=== PATIENT | female | born 1950 | race Caucasian/White ===

== ENCOUNTER 2022-03-21 08:35 | Inpatient (IN) | payer MEDICARE, MEDICAID, SELFPAY ==
[2022-03-21] VITALS (23 sets, daily range): BP systolic 125–166; BP diastolic 88–106; PULSE 88–122; RESP 17–20; TEMP 36.2–36.6; O2SAT 84–97; BMI 34.5; BMI 28.3; BMI 29.9
--- NOTE | 2022-03-21 07:24 | IR_ITS ---
APPROVED REPORT Patient Location: [facility] [employer] P[employer]her: ALBA Narayan RT (R) PROCEDURES Left heart catheterization Left ventriculogram Selective coronary angiogram Percutaneous mechanical thrombectomy to the proximal LAD Percutaneous mechanical thrombectomy to the first diagonal artery Drug-eluting stent deployment to the proximal LAD INDICATION Acute anterior ST elevation myocardial infarction, Coronary artery disease Informed consent was obtained prior to the procedure. COMPLICATIONS None Estimated Blood Loss: Less than 10 ML TECHNIQUE One percent lidocaine used to anesthetize the right anterior aspect of the wrist. The right radial artery was accessed via the Seldinger technique. A 6 Uzbek sheath was placed in the right radial artery. 2.5 mg of verapamil, 800 mcg of nitroglycerin, 1mg Lidocaine and 5000 U Heparin were given through the arterial sheath. The papa catheter was also used to perform selective coronary angiography. Therapeutic heparin was administered with a therapeutic ACT. The guide catheter was placed in the proximal left main artery and a Choice PT extra-support wire was used to traverse the thrombosed proximal LAD. The initial wire passed into a large first diagonal artery. The penumbra was advanced and mechanical aspiration was performed. This quickly called the penumbra therefore it was removed and back flushed which produced a large thrombus. The catheter was advanced and this was repeated. An additional large thrombus was removed from the diagonal artery. This restored CHAVO-3 flow with repeat angiography demonstrating the mid LAD was now occluded. The penumbra was placed back into the mid LAD and the penumbra was quickly occluded with passage into the mid LAD. The penumbra was removed and backflush which also produced a large thrombus. This restored CHAVO-3 flow throughout the LAD system. A 3.5 x 12 mm resolute Edwin stent was deployed in the proximal LAD reducing the napkin ring stenosis to 0%. CHAVO 0 flow was present at the beginning of the procedure with CHAVO-3 flow being present down both the large diagonal artery and the LAD at the end of the procedure. The guide catheter was then removed and used to perform right coronary angiography as well as left heart catheterization and left ventriculogram. At the end the procedure the sheath was removed good hemostasis was achieved using TR banding patient was transferred to the postop holding area in stable condition. Integrilin was started due to the large thrombus burden throughout the LAD and diagonal artery system. It also appeared there may be some distal thrombus in the LAD therefore the Integrilin was started ANGIOGRAPHIC RESULTS The left main artery Normal The left anterior descending artery Initially proximally thrombosed. Following percutaneous revascularization the LAD is widely patent and then bifurcates into a dual LAD system. The LAD itself is smaller than a large diagonal artery. The LAD proper is patent but a small caliber vessel which supplies the apex. The larger first diagonal artery has proximal 10 to 20% stenosis with accompanying CHAVO-3 flow The circumflex artery Nondominant with mild 10% luminal irregularities The right coronary artery Large dominant with proximal 30% stenosis mid vessel 30% stenosis and distal diffuse 30% stenoses The HILLIARD ventriculogram reveals Large anterior apical akinesis with estimate ejection fraction 15% The left ventricular end-diastolic pressure 40 mmHg IMPRESSION Acute proximal LAD occlusion/thrombosis Successful mechanical thrombectomy to both the LAD proper and a large bifurcating first diagonal artery which functions as a dual LAD supply Successfu
[2022-03-21 08:37] LABS: CATHL Activated Clotting Time > 400 SEC (74-125)
[2022-03-21 08:37] LABS: CATHL Activated Clotting Time 236 SEC (74-125)
[2022-03-21 09:17] LABS: Coronavirus 19, PCR Not Detected (NotDetected); Influenza A, PCR Not Detected (NotDetected); Influenza B, PCR Not Detected (NotDetected)
--- NOTE | 2022-03-21 09:47 | CA_ITS ---
APPROVED REPORT EXAM: Comprehensive 2D, Doppler, and color-flow Echocardiogram [employer] Development Engineer: Ngozi Burroughs CRT Ht: 5 ft 4 in Wt: 164lbs BSA: 1.80 BP: 130/97 mmHg Indications: Chest Pressure, STEMI, Hypertension/HDD, STENTED TODAY, EF TODAY 15% ON CATH. 2D Dimensions IVSd 1.80 cm F: 0.6-1.0 LVEF (Visual) 20.00 % PWd 0.80 cm F: 0.6 - 1.0 LVDd 5.10 cm F: 3.9 - 5.3 LVDs 3.60 cm F: 2.2 - 3.5 Aortic Root 3.60 cm F: 2.7 - 3.3 Left Atrium 3.20 cm F: 2.7 - 3.8 RVID Base (AP4) 2.90 cm (M/F) 2.5-4.1 LVOT 2.00 cm (M/F) 1.5-2.5 M-Mode Dimensions LA Diam 3.20 cm (1.9-4.0) Left Ventricle Left atrium is mildly enlarged, left ventricle is mildly dilated, there is severe reduced left ventricular systolic function, estimated ejection fraction approximately 20%, there is mild hypokinesis involving mid to distal septum, anterior, anterior apical and apical wall. Diastolic parameters are inconclusive. Right Ventricle Right atrium and right ventricle are normal size and contractility. Aortic Valve Aortic valve is minimally thickened and fibrosed there is no aortic stenosis, there is mild aortic insufficiency. Mitral Valve Mitral valve is grossly normal, there is mild mitral regurgitation. Tricuspid Valve Tricuspid valve is grossly normal, there is mild tricuspid regurgitation, tricuspid regurgitation jet velocity is inadequate for calculation of the right ventricular systolic pressure. Pulmonic Valve Pulmonic valve is poorly visualized. Great Vessels Aortic root is normal size. Inferior vena cava is poorly visualized. Pericardium No significant pericardial effusion noted. Conclusion 1. Mildly enlarged left atrium, dilated left ventricle, severely reduced left ventricular systolic function, estimated ejection fraction 20% with multiple segmental wall motion abnormality described above, diastolic parameters are inconclusive. 2. Mild aortic, mitral and tricuspid regurgitation. 3. No significant pericardial effusion noted. 4. Inferior vena cava is poorly visualized. Electronically signed by : Nadir Cummings MD 03/22/2022 10:48:01
--- NOTE | 2022-03-21 09:49 | EXP.CARD.CON ---
History of Present Illness History of Present Illness Consult date: 03/21/22 Requesting physician: John Cast Consult reason: chest pain Chief complaint: chest pain History of present illness: This is a 71-year-old white female who presented to the emergency department at [facility] with chest pain and pain under her armpits. The patient was found to have an anterior STEMI and was transferred here to [facility]. The patient reports that she woke up this morning feeling really anxious and then she had sudden onset of chest pain that she describes as a pressure sensation in the substernal aspect of her chest. It was radiating under her bilateral armpits and down her arms causing numbness. She states that this was an 8 out of 10 in intensity. She denies any associated shortness of breath. It was associated with diaphoresis and nausea. She states that the symptoms persisted so she went to the hospital at [facility]. That is where she was found to have an anterior STEMI and she was transferred here to [facility]. The patient was taken directly to the cardiac catheterization laboratory and underwent thrombectomy of the LAD and first diagonal artery as well as stenting of the LAD. The patient remains on an Integrilin drip at this time. She will be on dual antiplatelet therapy with Brilinta and aspirin. Currently she denies any chest pain or pressure following the procedure. She is still complaining of some nausea. She denies any fever, chills, vomiting, diarrhea, PND or orthopnea. The patient reports that her mother of old age at the age of 95 and her father after a fall where he she thinks he he hit his head. She denies a family history of ischemic heart disease. [facility] Disclaimer: The information contained in this section may have been updated after the patient was seen, as this information can be updated by other users. Medical History Abnormal electrocardiogram [ECG] [EKG] Acute systolic (congestive) heart failure Coronary artery disease Elevated left ventricular end-diastolic pressure (LVEDP) Hypertension Ischemic cardiomyopathy LV dysfunction Occasional use of marijuana ST elevation myocardial infarction (STEMI) of anterior wall Tobacco user Uses alcohol occasionally Surgical History Stented coronary artery Family History Other Hypertension Social History Smoking Status: Current every day smoker tobacco type: cigarettes packs per day: 1 quit status: considering quitting second hand exposure: Yes Tobacco counseling given: provider counseling alcohol intake: current counseling provided: provider counseling substance use type: marijuana counseling given: Yes counseling provided: provider counseling current occupational status: other Travel in the last 8 weeks: None Review of Systems Review of Systems Review of systems:: pertinent systems reviewed and negative unless documented below Constitutional Constitutional: Reports system reviewed and no additional complaints, except as documented Eyes Eyes: Reports system reviewed and no additional complaints, except as documented ENT Ears, Nose, Mouth, and Throat: Reports system reviewed and no additional complaints, except as documented *Cardiovascular Cardiovascular: Reports system reviewed and no additional complaints, except as documented, Reports chest pain, Reports chest pain at rest, Reports chest pain with activity, Reports diaphoresis and Reports radiating jaw, neck or arm pain *Respiratory Respiratory: Reports system reviewed and no additional complaints, except as documented *Gastrointestinal Gastrointestinal: Reports system reviewed and no additional complaints, except as documented and Reports nausea *Genitourinary Genitourinary:
--- NOTE | 2022-03-21 11:51 | EXP.HP ---
History of Present Illness *Admission Date: 03/21/22 *Reason for visit:: Chest pain, STEMI *History of present illness: Ms. Grey is a 71-year-old female with history of obesity, hypertension, tobacco use who presented with an hour and a half of chest pain onset prior to presenting to the ER. Initially presented to [facility] where she was found to have ST elevations on EKG consistent with anterior STEMI and transferred to [facility] for further management. Taken directly to the [facility] [employer] [facility]. She reported that she woke up this morning feeling anxious with sudden onset of chest pain described as pressure sensation in the middle of her chest. Radiating to bilateral armpits and down her arms with numbness. Pain was rated as 8 out of 10. Denied any shortness of breath, cough. Did complain of diaphoresis and nausea. Symptoms persisted. Taken directly to the [facility] [employer] [facility] and underwent thrombectomy of the LAD and first diagonal artery. Received stenting of her LAD. Was started on Integrilin drip initially. Started on dual antiplatelet therapy. Medicine consulted for admission. After arriving to the floor, Integrilin drip has been stopped. States she is feeling better but still having some intermittent chest discomfort. Denies any fever, vomiting, diarrhea, orthopnea. Does smoke at least 1/2 pack daily. [facility] Disclaimer: The information contained in this section may have been updated after the patient was seen, as this information can be updated by other users. Medical History Abnormal electrocardiogram [ECG] [EKG] Acute systolic (congestive) heart failure Coronary artery disease Elevated left ventricular end-diastolic pressure (LVEDP) Hypertension Ischemic cardiomyopathy LV dysfunction Occasional use of marijuana ST elevation myocardial infarction (STEMI) of anterior wall Tobacco user Uses alcohol occasionally Surgical History H/O tubal ligation Stented coronary artery Family History Hypertension Social History Smoking Status: Current every day smoker tobacco type: cigarettes packs per day: 1 quit status: considering quitting second hand exposure: Yes Tobacco counseling given: provider counseling alcohol intake: current counseling provided: provider counseling substance use type: marijuana counseling given: Yes counseling provided: provider counseling current occupational status: other Travel in the last 8 weeks: None Review of Systems Review of Systems Review of systems (narrative): 14 point review of systems performed, pertinent positives and negatives as per HPI *Neurologic Neurologic: Reports system reviewed and no additional complaints, except as documented Meds Home Medications and Allergies Home Medications Medication Instructions Recorded Confirmed Type albuterol sulfate 90 mcg/actuation 2 puff inhalation Q4HP PRN 03/21/22 03/21/22 History aerosol inhaler Shortness Of Breath citalopram 20 mg tablet 20 mg PO DAILY Depression 03/21/22 03/21/22 History fluticasone 250 mcg-salmeterol 50 1 ea inhalation BID COPD 03/21/22 03/21/22 History mcg/dose blistr powdr for inhalation hydroxyzine HCl 25 mg tablet 25 mg PO TIDP PRN Anxiety 03/21/22 03/21/22 History lisinopril 5 mg tablet 5 mg PO DAILY blood pressure 03/21/22 03/21/22 History loratadine 10 mg tablet 10 mg PO DAILY Allergy symptoms 03/21/22 03/21/22 History metoprolol tartrate 25 mg tablet 25 mg PO BID blood pressure 03/21/22 03/21/22 History New Prescriptions to Start Prescriptions: Allergies Allergy/AdvReac Type Severity Reaction Status Date / Time mycin AdvReac Unknown Uncoded 03/21/22 19:59 allergy reaction Exam Data for Last 24 hours Vital signs and Labs for Last 24 Hours: Pulse Resp BP Pulse Ox 99 H 18
--- NOTE | 2022-03-21 12:23 | PC.NURSE ---
verified with lift slab operator patient will not get her dose of brilinta tonight because she was loaded with the 180mg already
--- NOTE | 2022-03-21 12:31 | PC.NURSE ---
arrived to floor by stretcher from director of labor relations
--- NOTE | 2022-03-21 12:45 | SUR.PHASEI ---
1200 PHYSICIAN NOTIFIED OF PATIENT BRUISING ON CATH SITE, RIGHT RADIAL. NEW ORDERS TO STOP INTEGRILIN, MED STOPPED AT 1200. PRESSURE HELD ON RADIAL SITE FOR 10 MINUTES , TR BAND REMOVED . NO BLEEDING OR HEMATOMA NOTED. RIGHT WRIST IS BRUISED. RIGHT WRIST DRESSED WITH 4X4 AND TEGADERM
--- NOTE | 2022-03-21 14:20 | HMH.PHAINT1 ---
Pharmacy Intervention Comments: home medication list verified using list from outpatient pharmacy
--- NOTE | 2022-03-21 14:22 | ECG_ITS ---
APPROVED REPORT Exam: Resting ECG HR:94 bpm ECG Measurements Heart Rate 94 AXES ID 144 P 80 QRSd 78 QRS 127 QT 336 T 89 QTc 387 Conclusion SINUS RHYTHM RIGHT VENTRICULAR HYPERTROPHY [SOME/ALL OF: PROMINENT R IN V1, LATE TRANSITION, RAD, KIERAN, SSS] POSSIBLE ANTERIOR MYOCARDIAL INFARCTION , PROBABLY OLD [30 ms Q WAVE IN V3/V4, OR R < 0.2 mV IN V4] ABNORMAL ECG UNCONFIRMED REPORT Electronically signed by : Panfilo Baker MD 03/22/2022 08:50:37
--- NOTE | 2022-03-21 14:24 | PC.NURSE ---
Addendum entered by Kayley Puri RN 03/21/22 14:59: 1406 morphine 1mg admin, verified with rian Esquivel. 1420 pt noted to be moaning and sighing. when asked about pt pain level states she wants to give morphine time to work. 1450 again noted to be sighing and moaning. when asked if she is ok or if she is hurting again, she states that she is fine Original Note: 1400 called and spoke with A Black, notified that pt was still having chest pain, 5/10 similar in nature to pain this am. new orders, morphine 1 mg iv q1h. 1405 stat ekg
--- NOTE | 2022-03-21 20:25 | PC.NURSE ---
pt has had an ok afternoon since arrival to unit. she is alert and oriented and lungs are clear. following dose of promethazine pt became slightly confused and thought she was at home pt has bedsafety in place at this time. home medications addressed with pt, she is unsure of last time she definitely took her meds, she believes 03/20 at 1130. pt is able to ambulate with standby assist with staff. notified oncoming KERRI burgos that pt home meds still need to be reordered, she is tachycardic at this time, possibly related to not having beta yakelin
--- NOTE | 2022-03-21 20:29 | PC.NURSE ---
late entry: spoke with dr berger at approx 1420, pt requesting nicotine patch. order for nicotine 21mg td qd received patch admin at this time, verified with rian hart
--- NOTE | 2022-03-21 20:41 | PC.NURSE ---
late entry: addressed with Dr Cast at 1400 that pt face appears to be more swollen. rounded on pt again and states he does not feel that his face is any more swollen than this am. states that r/t kb betancourt being removed, face appears different
--- NOTE | 2022-03-21 22:21 | ECG_ITS ---
APPROVED REPORT Exam: Resting ECG HR:108 bpm ECG Measurements Heart Rate 108 AXES [place] 132 P 63 QRSd 78 QRS 146 QT 335 T 96 QTc 398 Conclusion SINUS TACHYCARDIA PATTERN CONSISTENT WITH PULMONARY DISEASE POSSIBLE RIGHT VENTRICULAR HYPERTROPHY [SOME/ALL OF: PROMINENT R IN V1, LATE TRANSITION, RAD, KIERAN, SSS] NONSPECIFIC ST ELEVATION [0.05+ mV ST ELEVATION] ABNORMAL ECG UNCONFIRMED REPORT Electronically signed by : Panfilo Baker MD 03/22/2022 08:48:19
[2022-03-21 23:13] LABS: Chloride 107 mmol/L (98-107)
[2022-03-21 23:14] LABS: Sodium 139 mmol/L (136-145)
[2022-03-21 23:16] LABS: Blood Urea Nitrogen 12 mg/dl (7-17); Creatinine Clearance Estimated 64 mL/min (50-200); Estimated Glomerular Filt Rate 99 ml/min (>60); GFR (African American) 119 ML/MIN (>60); Magnesium 1.9 mg/dl (1.6-2.3)
[2022-03-21 23:17] LABS: Calcium 8.7 mg/dl (8.4-10.2); Carbon Dioxide 23 mmol/L (22.0-30.0); Glucose 169 mg/dl (74-100)
[2022-03-22] VITALS (7 sets, daily range): BP systolic 94–106; BP diastolic 48–77; PULSE 90–120; RESP 17–23; TEMP 36.4–36.7; O2SAT 93–97; BMI 29.9
--- NOTE | 2022-03-22 06:41 | PC.NURSE ---
Pt continues to have CP but states it has improved. Nausea has improved. She is still soa. O2 2L NC placed on pt due to desats in upper 80s. MD Roman was informed and rounded on pt. EKG on chart. VSS at this time. Call light within reach. Safety measures in place.
[2022-03-22 06:44] LABS: Basophils # 0.1 K/mm3 (0-0.2); Basophils % 0.5 % (0.1-2.0); Eosinophils % 0.1 % (0.1-12.0); Hematocrit 48.6 % (37.0-47.0); Hemoglobin 15.5 g/dL (12.2-16.2); Lymphocytes % 6.1 % (10-50); Mean Corpuscular Hemoglobin 31.8 pg (27.0-31.2); Mean Corpuscular Volume 99.6 fl (81-99); Mean Platelet Volume 8.3 fl (7.4-10.4); Monocytes # 1.2 K/mm3 (0.1-1.0); Monocytes % 7.3 % (1.7-9.3); Neutrophils # 13.8 K/mm3 (1.8-7.8); Platelet Count 317 K/mm3 (142-424); Red Blood Count 4.88 M/mm3 (4.20-5.40)
[2022-03-22 06:46] LABS: MANUAL DIFFERENTIAL MANUAL DIFFERENTIAL (MANUAL DIFF)
[2022-03-22 07:20] LABS: Hemoglobin A1C 4.9 % (4.0-6.0)
[2022-03-22 07:35] LABS: Alanine Aminotransferase 95 U/L (12-78); Albumin Level 3.7 g/dl (3.5-5.0); Alkaline Phosphatase 61 U/L (38-126); Aspartate Amino Transferase 424 U/L (14-36); Bilirubin,Direct 0.5 mg/dl (0.0-0.4); Bilirubin,Indirect 1.2 mg/dL (0.0-0.9); Bilirubin,Total 1.7 mg/dl (0.2-1.3); Bilirubin,Unconjugated 1.2 mg/dL (0.0-1.1); Chol/HDL Ratio 2.9 (1-3.5); Cholesterol 226 mg/dl (140-200); HDL Cholesterol 77 mg/dl (40-60); Total Protein,Serum 6.3 g/dl (6.3-8.2); Triglycerides 87 mg/dl (30-150); VLDL Cholesterol 17 mg/dL (0-40)
[2022-03-22 07:46] LABS: Direct LDL Cholesterol 111.37 mg/dL (100-129)
[2022-03-22 08:14] LABS: Chloride 106 mmol/L (98-107); Sodium 139 mmol/L (136-145)
[2022-03-22 08:17] LABS: Blood Urea Nitrogen 15 mg/dl (7-17); Creatinine Clearance Estimated 64 mL/min (50-200); Estimated Glomerular Filt Rate 99 ml/min (>60); GFR (African American) 119 ML/MIN (>60)
[2022-03-22 08:18] LABS: Anion Gap 13.9 mEq/L (5-15); Calcium 8.8 mg/dl (8.4-10.2); Carbon Dioxide 24 mmol/L (22.0-30.0); Glucose 135 mg/dl (74-100)
--- NOTE | 2022-03-22 08:19 | EXP.ACUTE.PN ---
Subjective *Date: 03/22/22 *Time: 20:01 Interval history: Continues to have intermittent chest pain. Treating with opiates. Likely due to spasm. Denies any vomiting. No shortness of breath. Pleasant on interview. Alert and oriented. Reviewed telemetry, no acute events overnight. Medical Exam Vital signs and Labs for Last 24 Hours: Vital Signs Temp Pulse Pulse Resp BP Pulse Ox 03/22/22 04:00 100 H 21 98/71 L 93 L 03/22/22 04:00 90 03/22/22 00:00 120 H 03/21/22 20:00 110 H 03/22/22 00:00 97.7 F 03/22/22 00:00 107 H 17 95/77 L 93 L 03/21/22 22:00 122 H 17 133/90 92 L 03/21/22 20:00 111 H 20 133/95 H 90 L 03/21/22 20:00 97.1 F L 03/21/22 17:30 98 H 20 138/106 H 94 L 03/21/22 16:00 97.8 F 03/21/22 16:00 110 H 03/21/22 14:30 91 H 20 126/91 H 91 L 03/21/22 13:30 96 H 20 166/96 H 95 03/21/22 12:30 105 H 20 129/99 H 84 L 03/21/22 12:30 105 H 84 L 03/21/22 12:38 100 H 03/21/22 12:20 97 H 20 131/90 92 L 03/21/22 11:54 18 03/21/22 11:49 18 03/21/22 11:20 99 H 20 130/96 H 92 L 03/21/22 10:50 95 H 20 133/100 H 92 L 03/21/22 10:20 90 20 131/93 H 92 L 03/21/22 08:35 93 H 20 137/100 H 95 03/21/22 08:50 88 20 130/95 H 95 03/21/22 09:05 90 20 131/89 90 L 03/21/22 09:20 90 20 140/95 H 91 L 03/21/22 09:40 92 H 20 132/96 H 90 L 03/21/22 08:20 93 H 20 130/97 H 95 Intake and Output 12/03/22/22 03/22/22 23:59 07:59 15:59 Intake Total 60 / 120 60 / 60 Output Total 301 / 301 Balance -241 / -181 60 / 60 Intake: Intake, Oral Amount 60 / 120 60 / 60 Output: Output, Urine Amount 301 / 301 Other: Number of Unmeasured Voids 1 Laboratory Results - last 24 hr 03/21/22 08:26: Activated Clotting Time 236 H* 03/21/22 08:41: Activated Clotting Time > 400 H* D 03/21/22 08:45: SARS-CoV-2 (PCR) Not detected, Influenza A Untype (PCR) Not detected, Influenza Type B (PCR) Not detected 03/21/22 22:50: Sodium 139, Potassium 4.0, Chloride 107, Carbon Dioxide 23, Anion Gap 13.0, BUN 12, Creatinine 0.60, Estimated Creat Clear 64, Estimated GFR 99, Est GFR ( Amer) 119, Glucose 169 H, Calcium 8.7 03/21/22 22:50: Magnesium 1.9 03/22/22 05:30: Hemoglobin A1c 4.9 03/22/22 05:30: WBC 16.0 H, RBC 4.88, Hgb 15.5, Hct 48.6 H, MCV 99.6 H, MCH 31.8 H, MCHC 32.0, RDW 14.0, Plt Count 317, MPV 8.3, Neut % (Auto) 86.0 H, Lymph % (Auto) 6.1 L, [place] % (Auto) 7.3, Eos % (Auto) 0.1, Baso % (Auto) 0.5, Neut # (Auto) 13.8 H, Lymph # (Auto) 1.0, [place] # (Auto) 1.2 H, Eos # (Auto) 0.0, Baso # (Auto) 0.1 03/22/22 05:30: Total Bilirubin 1.7 H, Direct Bilirubin 0.5 H, Conjugated Bilirubin 0.0, Indirect Bilirubin 1.2 H, Unconjugated Bilirubin 1.2 H, AST 424 H*, ALT 95 H, Alkaline Phosphatase 61, Total Protein 6.3, Albumin 3.7, Triglycerides 87, Cholesterol 226 H, LDL Cholesterol Direct 111.37, VLDL Cholesterol 17, HDL Cholesterol 77 H, Cholesterol/HDL Ratio 2.9 I & O for Labs for Last 24 Hours: Intake & Output 03/19/22 03/20/22 03/21/22 03/22/22 23:59 23:59 23:59 23:59 Intake Total 60 / 120 Output Total 301 / 301 Balance -241 / -181 Weight 79.152 kg Constitutional: Present no acute distress and obese; Absent chronically ill appearing Head: Present atraumatic and normocephalic Neck: Present normal inspection Respiratory: Present normal respiratory effort; Absent rhonchi, stridor, wheezes or crackles Cardiac: Present Reg Rate and Rhythm GI: Present normal bowel sounds; Absent tenderness Extremities: Present normal inspection and full ROM; Absent edema Skin: Present intact; Absent erythema Neuro: Present Grossly Intact, alert, awake, oriented x 3 and moves all extremities Assessment and Plan *Assessment and plan (1) ST elevation myocardial infarction (STEMI) of anterior wall: Status: Acute Category: Medical
[2022-03-22 08:38] LABS: Potassium 4.9 mmoL/L (3.5-5.1)
[2022-03-22 09:48] LABS: Eosinophils % 1 % (0-3); Lymphocytes % 13 % (10-50); Monocytes % 3 % (2-9); Neutrophils % 83 % (42-76); Platelet Estimate Normal; RBC Morphology Normal; Total Cells Counted 100
--- NOTE | 2022-03-22 12:46 | EXP.CARD.PN ---
Subjective Subjective Date: 03/22/22 Time: 10:00 Principal diagnosis: anterior STEMI Interval history: This is a 71-year-old white female presented to the hospital at [facility] with chest pain and pain under her armpits. The patient was found to have an anterior STEMI and was transferred here to [facility]. The patient underwent thrombectomy of the LAD and first diagonal artery and had stenting to the LAD as well. She will be on Brilinta and aspirin for dual antiplatelet therapy. The patient has been having intermittent chest pain since her procedure yesterday and she is getting IV morphine and Dilaudid as needed for chest pain. She states that she feels much better than she did when she was having a heart attack but she is still having intermittent chest pressure that radiates to the armpits. She denies any shortness of breath. She denies any fever, chills, nausea, vomiting, diarrhea, PND orthopnea. Exam Data for Last 24 hours Vital signs and Labs for Last 24 Hours: Temp Pulse Resp BP Pulse Ox 97.8 F 96 H 20 97/68 L 94 L 03/22/22 08:00 03/22/22 08:00 03/22/22 08:00 03/22/22 08:00 03/22/22 08:00 Laboratory Results - last 24 hr 03/21/22 22:50: Sodium 139, Potassium 4.0, Chloride 107, Carbon Dioxide 23, Anion Gap 13.0, BUN 12, Creatinine 0.60, Estimated Creat Clear 64, Estimated GFR 99, Est GFR ( Amer) 119, Glucose 169 H, Calcium 8.7 03/21/22 22:50: Magnesium 1.9 03/22/22 05:30: Hemoglobin A1c 4.9 03/22/22 05:30: WBC 16.0 H, RBC 4.88, Hgb 15.5, Hct 48.6 H, MCV 99.6 H, MCH 31.8 H, MCHC 32.0, RDW 14.0, Plt Count 317, MPV 8.3, Neut % (Auto) 86.0 H, Lymph % (Auto) 6.1 L, Lake % (Auto) 7.3, Eos % (Auto) 0.1, Baso % (Auto) 0.5, Neut # (Auto) 13.8 H, Lymph # (Auto) 1.0, Lake # (Auto) 1.2 H, Eos # (Auto) 0.0, Baso # (Auto) 0.1, Total Counted 100, Neutrophils % (Manual) 83 H, Lymphocytes % (Manual) 13, Monocytes % (Manual) 3, Eosinophils % (Manual) 1, Platelet Estimate Normal, RBC Morphology Normal 03/22/22 05:30: Sodium 139, Potassium 4.9 D, Chloride 106, Carbon Dioxide 24, Anion Gap 13.9, BUN 15, Creatinine 0.60, Estimated Creat Clear 64, Estimated GFR 99, Est GFR ( Amer) 119, Glucose 135 H D, Calcium 8.8 03/22/22 05:30: Total Bilirubin 1.7 H, Direct Bilirubin 0.5 H, Conjugated Bilirubin 0.0, Indirect Bilirubin 1.2 H, Unconjugated Bilirubin 1.2 H, AST 424 H*, ALT 95 H, Alkaline Phosphatase 61, Total Protein 6.3, Albumin 3.7, Triglycerides 87, Cholesterol 226 H, LDL Cholesterol Direct 111.37, VLDL Cholesterol 17, HDL Cholesterol 77 H, Cholesterol/HDL Ratio 2.9 I & O for Last 24 hours: Intake & Output 03/19/22 03/20/22 03/21/22 03/22/22 23:59 23:59 23:59 23:59 Intake Total 60 / 120 420 / 420 Output Total 301 / 301 0 / 0 Balance -241 / -181 420 / 420 Weight 174 lb 8 oz 175 lb 4.8 oz Narrative: Telemetry strip shows sinus rhythm with a rate of 100 bpm. Echocardiogram shows: 1.? Mildly enlarged left atrium, dilated left ventricle, severely reduced left ventricular systolic function, estimated ejection fraction 20% with multiple segmental wall motion abnormality described above, diastolic parameters are inconclusive. 2.? Mild aortic, mitral and tricuspid regurgitation. 3.? No significant pericardial effusion noted. 4.? Inferior vena cava is poorly visualized. Constitutional Constitutional: no acute distress and average body habitus *Routine HEENT Exam Head: Present normocephalic and atraumatic ENT: Present mucous membranes moist *Routine Neck Exam Neck: Present supple, full ROM and normal carotid upstroke; Absent JVD, carotid bruit or lymphadenopathy *Routine Respiratory Exam Respiratory: Present CTA bilaterally, normal respiratory effort, able to speak in complete sentences and symmetric chest movement *Routine Cardiovascular Exam Cardiovascular: Present RRR, Normal S1, Normal S2 and tachycardia; Absent murmur or gallop *Routine Abdominal Exam Abdominal: Present soft and normoacti
--- NOTE | 2022-03-22 19:51 | PC.NURSE ---
pt has complained of pain two times this shift and was treated per MAY, remains on 2L NC, right radial cath site with dressing in place, with extensive bruising
[2022-03-23] VITALS: BP 121/85; PULSE 103; PULSE 111; RESP 20; TEMP 36.9; O2SAT 99
[2022-03-23 04:00] VITALS: BP 88/64; PULSE 100; PULSE 108; RESP 20; TEMP 36.9; O2SAT 98; BMI 29.4
--- NOTE | 2022-03-23 07:18 | EXP.DC.SUM ---
General Admission date:: 03/21/22 Discharge date: 03/23/22 HPI HPI HPI: Ms. Grey is a 71-year-old female with history of obesity, hypertension, tobacco use who presented with an hour and a half of chest pain onset prior to presenting to the ER. Initially presented to [facility] where she was found to have ST elevations on EKG consistent with anterior STEMI and transferred to [facility] for further management. Taken directly to the Impregnator. She reported that she woke up this morning feeling anxious with sudden onset of chest pain described as pressure sensation in the middle of her chest. Radiating to bilateral armpits and down her arms with numbness. Pain was rated as 8 out of 10. Denied any shortness of breath, cough. Did complain of diaphoresis and nausea. Symptoms persisted. Taken directly to the Impregnator and underwent thrombectomy of the LAD and first diagonal artery. Received stenting of her LAD. Was started on Integrilin drip initially. Started on dual antiplatelet therapy. Medicine consulted for admission. After arriving to the floor, Integrilin drip has been stopped. States she is feeling better but still having some intermittent chest discomfort. Denies any fever, vomiting, diarrhea, orthopnea. Does smoke at least 1/2 pack daily. Hospital Course Hospital Course Hospital Course: 71-year-old female who presented to an outside hospital with STEMI.? Taken directly to the Impregnator on arrival to [facility].? Status post stenting of LAD.? Cardiology consulted.? Problems addressed as follows: STEMI CAD Ischemic cardiomyopathy HLD -Cardiology consulted, patient taken to nv To the Impregnator on arrival. Underwent successful thrombectomy of the LAD and a large bifurcating first diagonal artery which functioned as a dual LAD supply. Stenting of LAD completed. She was initiated on goal-directed therapy including Brilinta 90 mg twice a day, aspirin 81 mg daily, high intensity statin, and Entresto. Pressures have remained soft, will defer initiation of beta-yakelin cardiology's request until follow-up as an outpatient. Echocardiogram obtained showing an ejection fraction of 20%. Given her severely reduced EF, she was fitted for a LifeVest. She will discharge home with his LifeVest to wear for 90 days and then she will have a repeat echo to determine if she meets criteria for an AICD. Has remained stable on telemetry for 48 hours after reperfusion. Discharge home today with close follow-up with cardiology the beginning of next week. Of note, she has had intermittent chest pain since her procedure. Given that she had a large anterior ME, cardiology anticipates chest pain for some time. Plan to send her home with course of Stopover for pain. New cardiac medications: -Brilinta 90 mg twice daily -Aspirin 81 mg daily -Entresto 49/51 mg twice a day -Atorvastatin 40 mg daily Tobacco use disorder -Initiated on nicotine replacement therapy, counseled on benefits of smoking cessation. Discharged with nicotine patches Obesity -Complicates all aspects of care.? A1c screen during admission, 4.9. No diagnosis of diabetes. Stable for discharge home. Wearing LifeVest at time of discharge Exam Data for Last 24 hours Vital signs and Labs for Last 24 Hours: Temp Pulse Resp BP Pulse Ox 98.5 F 100 H 20 88/64 L 98 03/23/22 04:00 03/23/22 04:00 03/23/22 04:00 03/23/22 04:00 03/23/22 04:00 Laboratory Results - last 24 hr 03/22/22 05:30: Hemoglobin A1c 4.9 03/22/22 05:30: Total Counted 100, Neutrophils % (Manual) 83 H, Lymphocytes % (Manual) 13, Monocytes % (Manual) 3, Eosinophils % (Manual) 1, Platelet Estimate Normal, RBC Morphology Normal 03/22/22 05:30: Sodium 139, Potassium 4.9 D, Chloride 106, Carbon Dioxide 24, Anion Gap 13.9, BUN 15, Creatinine 0.60, Estimated Creat Clear 64, Estimated GFR 99, Est GFR ( Amer) 119, Glucose 135 H D, Calcium 8.8 03/22/22 05:30: Total Biliru
[2022-03-23 08:00] VITALS: BP 88/56; PULSE 99; RESP 16; TEMP 36.5; O2SAT 94; O2SAT 98
[2022-03-23 08:03] LABS: Basophils # 0.1 K/mm3 (0-0.2); Basophils % 0.7 % (0.1-2.0); Eosinophils # 0.1 K/mm3 (0.0-0.4); Eosinophils % 0.5 % (0.1-12.0); Hematocrit 43.1 % (37.0-47.0); Hemoglobin 14.1 g/dL (12.2-16.2); Lymphocytes # 1.2 K/mm3 (0.7-4.5); Lymphocytes % 10.3 % (10-50); Mean Corpuscular HGB Conc 32.7 g/dL (31.8-35.4); Mean Corpuscular Hemoglobin 31.3 pg (27.0-31.2); Mean Corpuscular Volume 95.9 fl (81-99); Mean Platelet Volume 8.4 fl (7.4-10.4); Monocytes # 0.8 K/mm3 (0.1-1.0); Monocytes % 6.9 % (1.7-9.3); Neutrophils # 9.8 K/mm3 (1.8-7.8); Neutrophils % 81.7 % (37.0-80.0); Platelet Count 244 K/mm3 (142-424); Red Blood Count 4.49 M/mm3 (4.20-5.40); Red Cell Distribution Width 13.9 % (11.5-17.5)
[2022-03-23 08:07] LABS: Chloride 105 mmol/L (98-107); Potassium 3.7 mmoL/L (3.5-5.1); Sodium 136 mmol/L (136-145)
[2022-03-23 08:10] LABS: Alanine Aminotransferase 60 U/L (12-78); Albumin Level 3.2 g/dl (3.5-5.0); Albumin/Globulin Ratio 1.2 (1.1-1.8); Alkaline Phosphatase 70 U/L (38-126); Anion Gap 5.7 mEq/L (5-15); Aspartate Amino Transferase 160 U/L (14-36); Bilirubin,Total 1.7 mg/dl (0.2-1.3); Blood Urea Nitrogen 21 mg/dl (7-17); Calcium 8.5 mg/dl (8.4-10.2); Carbon Dioxide 29 mmol/L (22.0-30.0); Creatinine Clearance Estimated 64 mL/min (50-200); Estimated Glomerular Filt Rate 71 ml/min (>60); GFR (African American) 86 ML/MIN (>60); Globulin 2.7 g/dL (1.3-3.2); Glucose 111 mg/dl (74-100); Total Protein,Serum 5.9 g/dl (6.3-8.2)
[2022-03-23 08:11] LABS: Magnesium 2.3 mg/dl (1.6-2.3)
[2022-03-23 09:05] VITALS: O2SAT 93
[2022-03-23 09:43] VITALS: BP 93/64
[2022-03-23 11:48] VITALS: BP 90/73; PULSE 110; RESP 20; TEMP 36.6; O2SAT 96
--- NOTE | 2022-03-23 14:27 | P.CONPHA_ITS ---
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 PATIENT HYPOTENSIVE.
--- NOTE | 2022-03-25 15:10 | CARE MANAGER ---
Contacted patient related to hospital discharge. She states she is doing well. She was able to get her medications and is aware of follow up appointments. Denies questions or concerns. KERRI Hurtado
== END 2022-03-23 15:02 | disposition home or self-care (01) | DRG 247 ==
LOC: 2ND 08:36
PROVIDERS: Internal Medicine; Nurse Practitioner Family; Admitting Provider Internal Medicine Adolescent Medicine; PCP Nurse Practitioner Family; Referring Provider Internal Medicine Adolescent Medicine; Visit Provider Internal Medicine Adolescent Medicine
PROC: 027034Z Dilation of Coronary Artery, One Artery with Drug-eluting Intraluminal Device, Percutaneous Approach (ICD-10-PCS; principal; 2022-03-21 07:15)
DX: I21.09 ST elevation (STEMI) myocardial infarction involving other coronary artery of anterior wall (principal); I50.20 Unspecified systolic (congestive) heart failure; I25.110 Atherosclerotic heart disease of native coronary artery with unstable angina pectoris; F17.210 Nicotine dependence, cigarettes, uncomplicated; I25.5 Ischemic cardiomyopathy; E66.9 Obesity, unspecified; Z68.29 Body mass index [BMI] 29.0-29.9, adult; I11.0 Hypertensive heart disease with heart failure
CPT/HCPCS: G0379; 36415; 80048; 80053; 80061; 80076; 83036; 83735; 85007; 85025; 85347; 92928; 92973; 93005; 93306; 93458; 94640; 94761; 99152; 99153; C1725; C1769; C1876; C9600; C9803; J1327; J1644; J2405; Q9967; U0003; U0005

== ENCOUNTER → 2022-03-26 11:12 | Outpatient (CLI) | payer MEDICARE, MEDICAID, SELFPAY ==
[2022-03-26 12:14] LABS: Basophils # 0.1 K/mm3 (0-0.2); Eosinophils # 0.2 K/mm3 (0.0-0.4); Hematocrit 43.8 % (37.0-47.0); Hemoglobin 14.2 g/dL (12.2-16.2); Lymphocytes % 13.4 % (10-50); Mean Corpuscular HGB Conc 32.3 g/dL (31.8-35.4); Mean Corpuscular Hemoglobin 31.3 pg (27.0-31.2); Mean Corpuscular Volume 96.9 fl (81-99); Mean Platelet Volume 8.5 fl (7.4-10.4); Monocytes # 0.7 K/mm3 (0.1-1.0); Monocytes % 9.9 % (1.7-9.3); Neutrophils # 5.2 K/mm3 (1.8-7.8); Neutrophils % 72.6 % (37.0-80.0); Platelet Count 339 K/mm3 (142-424); Red Blood Count 4.52 M/mm3 (4.20-5.40); Red Cell Distribution Width 14.1 % (11.5-17.5); White Blood Count 7.2 K/mm3 (4.8-10.8)
[2022-03-26 12:46] LABS: Chloride 106 mmol/L (98-107); Potassium 3.7 mmoL/L (3.5-5.1); Sodium 139 mmol/L (136-145)
[2022-03-26 12:49] LABS: Anion Gap 12.7 mEq/L (5-15); Blood Urea Nitrogen 9 mg/dl (7-17); Calcium 8.8 mg/dl (8.4-10.2); Carbon Dioxide 24 mmol/L (22.0-30.0); Estimated Glomerular Filt Rate 99 ml/min (>60); GFR (African American) 119 ML/MIN (>60); Glucose 98 mg/dl (74-100)
== END ==
PROVIDERS: PCP Nurse Practitioner Family; Visit Provider Internal Medicine
DX: R06.09 Other forms of dyspnea (principal); I25.10 Atherosclerotic heart disease of native coronary artery without angina pectoris
CPT/HCPCS: 36415; 80048; 85025

== ENCOUNTER 2022-04-15 13:19 | Observation (INO) | payer MEDICARE, MEDICAID, SELFPAY ==
[2022-04-15] VITALS (8 sets, daily range): BP systolic 86–100; BP diastolic 52–66; PULSE 80–108; RESP 20–22; TEMP 36.9; O2SAT 92–97; BMI 29.8
--- NOTE | 2022-04-15 13:44 | EXP.CARD.CON ---
History of Present Illness History of Present Illness Consult date: 04/15/22 Requesting physician: Khanh Watson Consult reason: shortness of breath Chief complaint: soa Additional Medical History:: Significant past medical hx Coronary artery disease- stemi 02/2022 with thrombectomy of LAD and large bifurcation first diag/stent to LAD Systolic heart failure- recent EF 20%. On entresto, in lifevest Hypertension Prior STEMI tobacco user [facility] 02/2022 IMPRESSION Acute proximal LAD occlusion/thrombosis Successful mechanical thrombectomy to both the LAD proper and a large bifurcating first diagonal artery which functions as a dual LAD supply Successful percutaneous stenting of the proximal LAD critical napkin ring stenosis reduced to 0% with 1 drug-eluting stent Large anteroapical akinetic area with critically reduced ejection fraction accompanied by severely elevated LVEDP PLAN 1. Integrilin drip for the next 18 hours 2. Brilinta 90 twice daily plus aspirin 81 mg daily 3. Start Entresto first and titrate up as hemodynamically stable.? Only after patient tolerates Entresto should carvedilol then be started.? Carvedilol can be started at low dosage and then uptitrated as hemodynamically stable 4. Echocardiogram 5. Avoidance of tobacco product 6. LifeVest should be arranged and placed prior to discharge 7. LDL less than 55 to be achieved with high intensity statin.? High intensity statin should be started this morning History of present illness: 71 year old white female presented to office for follow up visit with complaint of progressive and worsening soa and productive cough since last Friday associated with LE edema and orthopnea. Also reports mild chest heaviness. Patient had a STEMi 02/2022 which resulted in stenting to the prox LAD. Patient was also noted to have a critically reduced EF of 20% and severely elevated LVEDP. Patient was started on entresto and placed in lifevest. Reports started feeling bad last Friday and symptoms have progressed since then. Reports is coughing up a lot of junk from lungs. Denies fever, chills, or nausea/vomiting. EKG in office shows sinus tach rate of 103 occasional pvc. Patient was admitted for presumed acute on chronic systolic heart failure and further evaluation and treatment. [facility] Disclaimer: The information contained in this section may have been updated after the patient was seen, as this information can be updated by other users. Medical History Abnormal electrocardiogram [ECG] [EKG] Acute systolic (congestive) heart failure Coronary artery disease Elevated left ventricular end-diastolic pressure (LVEDP) Encounter for monitoring antiplatelet therapy Hypertension Ischemic cardiomyopathy LV dysfunction Occasional use of marijuana ST elevation myocardial infarction (STEMI) of anterior wall Tachypnea Tobacco user Uses alcohol occasionally Surgical History (Updated 04/15/22 @ 14:32 by Khanh Watson MD) H/O tubal ligation History of cataract surgery Stented coronary artery Family History (Updated 04/15/22 @ 14:33 by Khanh Watson MD) Mother Old age Father Fall Social History Smoking Status: Current every day smoker tobacco type: cigarettes packs per day: 1 quit status: considering quitting second hand exposure: Yes alcohol intake: current counseling provided: provider counseling substance use type: marijuana counseling given: Yes counseling provided: provider counseling current occupational status: other Travel in the last 8 weeks: None Review of Systems Review of Systems Review of systems:: pertinent systems reviewed and negative unless documented below Constitutional Constitutional: Reports weakness *Cardiovascular Cardiovascular: Reports chest pain and Reports dyspnea Comments: LE edema *Respiratory Respiratory: Reports dyspnea *Neurologic Neurologic: Reports
--- NOTE | 2022-04-15 14:08 | CA_ITS ---
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 Limited echocardiogram was performed to evaluate left ventricular systolic function, Definity contrast was utilized to delineate the endocardial surfaces. 2. Dilated left ventricle, severely reduced left ventricular systolic function, estimated ejection fraction 25%, there is mild hypokinesis involving mid to distal septum, anterior, anterior apical and anterolateral wall, there is no left ventricular thrombus seen. 3. No significant pericardial effusion noted. Electronically signed by : Nadir Cummings MD 04/16/2022 05:38:59
--- NOTE | 2022-04-15 14:08 | XR_ITS ---
FINAL REPORT CLINICAL HISTORY: Dyspnea, patient had a heart attack february requiring one stent placed. She was unable to stand for exam due to extreme generalized weakness. Done sitting upright in wheelchair. FINDINGS: PA and lateral views of the chest are obtained. There is no prior exam for comparison. There is cardiomegaly. There are increased interstitial markings with right greater than left lower lobe opacities and right greater than left pleural effusions. Findings are favored to represent CHF. There is no pneumothorax. There is no acute osseous abnormality. IMPRESSION: Increased interstitial markings with right greater than left lower lobe opacities and right greater than left pleural effusions, favor CHF. Reviewed, Interpreted and Dictated by Sridevi Gomez MD Transcribed by Radha Lema Authenticated and [facility]
--- NOTE | 2022-04-15 14:24 | EXP.HP ---
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 She was directly admitted to [facility] for shortness of air. Her past medical history is significant for HFrEF with ejection fraction 20% on LifeVest, ischemic cardiomyopathy, coronary disease status post stent to LAD March 2022, hypertension, COPD with ongoing tobacco dependence. She is accompanied by her daughter Laurita who assists with the history. She reports over the last week identifying increasing dyspnea worse with exertion and now occurring at rest. She reports acute dyspnea with minimal exertion (NYHA IV). She describes associated cough that is productive characterized as thick and arnold in color. She denies associated hemoptysis. She reports no associated retrosternal chest pain or palpitations. She denies syncope or falls. She does not use home oxygen. She has identified increasing lower extremity edema and orthopnea. She reports that she is COVID?19 vaccinated. [facility] Medical History Abnormal electrocardiogram [ECG] [EKG] Acute systolic (congestive) heart failure Coronary artery disease Elevated left ventricular end-diastolic pressure (LVEDP) Encounter for monitoring antiplatelet therapy Hypertension Ischemic cardiomyopathy LV dysfunction Occasional use of marijuana ST elevation myocardial infarction (STEMI) of anterior wall Tachypnea Tobacco user Uses alcohol occasionally Surgical History (Updated 04/15/22 @ 14:32 by Khanh Watson MD) H/O tubal ligation History of cataract surgery Stented coronary artery Family History (Updated 04/15/22 @ 14:33 by Khanh Watson MD) Mother Old age Father Fall Social History Smoking Status: Current every day smoker tobacco type: cigarettes packs per day: 1 quit status: considering quitting second hand exposure: Yes alcohol intake: current counseling provided: provider counseling substance use type: marijuana counseling given: Yes counseling provided: provider counseling current occupational status: other Travel in the last 8 weeks: None Review of Systems Review of Systems Review of systems:: pertinent systems reviewed and negative unless documented below Constitutional Constitutional: Reports weakness *Cardiovascular Cardiovascular: Denies chest pain, Reports dyspnea, Reports dyspnea on exertion and Reports leg edema *Respiratory Respiratory: Reports cough, Reports dyspnea, Reports dyspnea on exertion and Reports excessive phlegm production *Gastrointestinal Gastrointestinal: Denies loose stools, Denies nausea and Denies vomiting *Neurologic Neurologic: Reports weakness Meds Home Medications and Allergies Home Medications Medication Instructions Recorded Confirmed Type albuterol sulfate 90 mcg/actuation 2 puff inhalation Q4HP PRN 03/21/22 04/15/22 History aerosol inhaler Shortness Of Breath citalopram 20 mg tablet 20 mg PO DAILY Depression 03/21/22 04/15/22 History fluticasone 250 mcg-salmeterol 50 1 ea inhalation BID COPD 03/21/22 04/15/22 History mcg/dose blistr powdr for inhalation hydroxyzine HCl 25 mg tablet 25 mg PO TIDP PRN Anxiety 03/21/22 04/15/22 History loratadine 10 mg tablet 10 mg PO DAILY Allergy symptoms 03/21/22 04/15/22 History nicotine 21 mg/24 hr daily 21 mg transdermal DAILYP PRN 03/23/22 04/15/22 Rx transdermal patch Nicotine Cravings 28 days #28 ea oxycodone-acetaminophen 5 mg-325 1 tab PO Q4-6H PRN pain #60 tabs 03/26/22 04/15/22 Rx mg tablet (Percocet) aspirin 81 mg tablet,delayed 81 mg PO DAILY HEART HEALTH 04/15/22 04/15/22 History release atorvastatin 40 mg tablet 40 mg PO HS Cholesterol 04/15/22 04/15/22 History sacubitril 49 mg-valsartan 51 mg 1 tab PO
--- NOTE | 2022-04-15 14:44 | HMH.PHAINT1 ---
Pharmacy Intervention Comments: MEDICATION RECONCILIATION COMPLETED ON PATIENT USING EXTERNAL FILL HISTORY FROM PHARMACY AND DISCHARGE SUMMARY FROM PREVIOUS ADMISSION. -TONE MARTINEZ, FAYD
--- NOTE | 2022-04-15 14:56 | ECG_ITS ---
APPROVED REPORT Exam: Resting ECG HR:90 bpm ECG Measurements Heart Rate 90 AXES RI 127 P 34 QRSd 93 QRS 154 QT 374 T 172 QTc 422 Conclusion SINUS RHYTHM WITH OCCASIONAL SUPRAVENTRICULAR PREMATURE COMPLEXES INCOMPLETE RIGHT BUNDLE BRANCH RVH with late R wave progression, unchanged from prior UNCONFIRMED REPORT Electronically signed by : Panfilo Baker MD 04/15/2022 20:11:28
[2022-04-15 15:10] LABS: Coronavirus 19, PCR Not Detected (NotDetected); Influenza A, PCR Not Detected (NotDetected); Influenza B, PCR Not Detected (NotDetected)
[2022-04-15 15:13] LABS: ABG Base Excess 2.8 mmol/L (-2.4-2.3); ABG HCO3 26.8 mmhg (22.0-26.0); ABG Oxygen Saturation 94 % (90-100); ABG PCO2 39.4 mmhg (35.0-45.0); ABG PH 7.45 mmol/L (7.35-7.45); ABG PO2 69.1 mmhg (80-100)
[2022-04-15 15:15] LABS: Allen's Test Acceptable; Source Right Radial
--- NOTE | 2022-04-15 15:24 | PC.NURSE ---
EKG performed at 1456, Polly viewed EKG at 1459. Polly notified Dr Roman who states this is NOT a STEMI. no further orders received.
--- NOTE | 2022-04-15 15:30 | PC.NURSE ---
off unit at this time with radiology
[2022-04-15 15:39] LABS: Basophils % 0.3 % (0.1-2.0); Eosinophils # 0.1 K/mm3 (0.0-0.4); Eosinophils % 0.7 % (0.1-12.0); Hematocrit 34.4 % (37.0-47.0); Hemoglobin 11.7 g/dL (12.2-16.2); Lymphocytes # 0.7 K/mm3 (0.7-4.5); Lymphocytes % 5.9 % (10-50); Mean Corpuscular HGB Conc 33.9 g/dL (31.8-35.4); Mean Corpuscular Hemoglobin 32.1 pg (27.0-31.2); Mean Corpuscular Volume 94.7 fl (81-99); Mean Platelet Volume 7.9 fl (7.4-10.4); Monocytes # 0.9 K/mm3 (0.1-1.0); Monocytes % 7.2 % (1.7-9.3); Neutrophils # 10.1 K/mm3 (1.8-7.8); Neutrophils % 85.8 % (37.0-80.0); Platelet Count 390 K/mm3 (142-424); Red Blood Count 3.63 M/mm3 (4.20-5.40); Red Cell Distribution Width 13.4 % (11.5-17.5); White Blood Count 11.7 K/mm3 (4.8-10.8)
[2022-04-15 15:42] LABS: Lactic Acid 1.6 mmol/L (0.7-2.1)
[2022-04-15 15:43] LABS: Alanine Aminotransferase 37 U/L (12-78); Albumin Level 3.4 g/dl (3.5-5.0); Albumin/Globulin Ratio 1.1 (1.1-1.8); Alkaline Phosphatase 106 U/L (38-126); Anion Gap 10.3 mEq/L (5-15); Aspartate Amino Transferase 54 U/L (14-36); Bilirubin,Total 1.2 mg/dl (0.2-1.3); Blood Urea Nitrogen 13 mg/dl (7-17); Calcium 8.8 mg/dl (8.4-10.2); Carbon Dioxide 28 mmol/L (22.0-30.0); Chloride 97 mmol/L (98-107); Creatinine Clearance Estimated 64 mL/min (50-200); Estimated Glomerular Filt Rate 99 ml/min (>60); GFR (African American) 119 ML/MIN (>60); Globulin 3.2 g/dL (1.3-3.2); Glucose 104 mg/dl (74-100); Magnesium 2.1 mg/dl (1.6-2.3); Potassium 3.3 mmoL/L (3.5-5.1); Sodium 132 mmol/L (136-145); Total Protein,Serum 6.6 g/dl (6.3-8.2)
[2022-04-15 15:44] LABS: MANUAL DIFFERENTIAL MANUAL DIFFERENTIAL (MANUAL DIFF)
[2022-04-15 15:53] LABS: NT Pro Brain Natriuretic Pep. 12500 pg/mL (0-125)
[2022-04-15 16:33] LABS: Troponin I 0.02 ng/ml (0.00-0.034)
[2022-04-15 18:08] LABS: Lymphocytes % 7 % (10-50); Monocytes % 8 % (2-9); Neutrophils % 85 % (42-76); Platelet Estimate Normal; Tear Drop Cells 1+; Total Cells Counted 100
[2022-04-15 19:03] LABS: Troponin I 0.02 ng/ml (0.00-0.034)
--- NOTE | 2022-04-15 20:08 | PC.NURSE ---
MD Roman consulted for BP 84/53. Pt has entresto due this evening. New orders received to go ahead and give entresto.
[2022-04-15 22:56] LABS: Troponin I 0.02 ng/ml (0.00-0.034)
[2022-04-16] VITALS (15 sets, daily range): BP systolic 82–97; BP diastolic 53–64; PULSE 80–100; RESP 16–30; TEMP 36.6–36.9; O2SAT 93–98; BMI 30.4
--- NOTE | 2022-04-16 04:27 | PC.NURSE ---
Pt states she does not feel good. States she has been coughing. Cough noted to be nonproductive. BP hypotensive at times this shift. MD Cooper aware. Has improved this AM. 97/. She remains on 2L O2 NC. Pt states that soa is not any worse. She has had 700 ml urine output this shift. PO intake 240 ml. Pt has remained NSR with PVCs on telemetry. Has c/o generalized discomfort. Medicated per may. Call light within reach.
[2022-04-16 06:43] LABS: Basophils % 0.4 % (0.1-2.0); Eosinophils # 0.1 K/mm3 (0.0-0.4); Eosinophils % 0.7 % (0.1-12.0); Hematocrit 33.7 % (37.0-47.0); Hemoglobin 11.1 g/dL (12.2-16.2); Lymphocytes # 0.7 K/mm3 (0.7-4.5); Mean Corpuscular HGB Conc 32.9 g/dL (31.8-35.4); Mean Corpuscular Hemoglobin 31.2 pg (27.0-31.2); Mean Corpuscular Volume 94.9 fl (81-99); Mean Platelet Volume 8.2 fl (7.4-10.4); Monocytes # 0.8 K/mm3 (0.1-1.0); Monocytes % 7.4 % (1.7-9.3); Neutrophils # 8.8 K/mm3 (1.8-7.8); Neutrophils % 84.5 % (37.0-80.0); Platelet Count 377 K/mm3 (142-424); Red Blood Count 3.56 M/mm3 (4.20-5.40); Red Cell Distribution Width 13.6 % (11.5-17.5); White Blood Count 10.4 K/mm3 (4.8-10.8)
[2022-04-16 06:55] LABS: Anion Gap 6.9 mEq/L (5-15); Blood Urea Nitrogen 12 mg/dl (7-17); Calcium 8.6 mg/dl (8.4-10.2); Carbon Dioxide 30 mmol/L (22.0-30.0); Chloride 101 mmol/L (98-107); Creatinine Clearance Estimated 66 mL/min (50-200); Estimated Glomerular Filt Rate 82 ml/min (>60); GFR (African American) 100 ML/MIN (>60); Glucose 89 mg/dl (74-100); Magnesium 2.1 mg/dl (1.6-2.3); Sodium 135 mmol/L (136-145)
[2022-04-16 07:02] LABS: NT Pro Brain Natriuretic Pep. 11000 pg/mL (0-125)
[2022-04-16 07:13] LABS: Potassium 2.9 mmoL/L (3.5-5.1)
--- NOTE | 2022-04-16 07:49 | PC.NURSE ---
Addendum entered by Kayley Puri RN 04/16/22 10:25: able to notify Dr Cast face to face of k+ 2.9 at 0840 Original Note: 0713 critical lab value k+ 2.9 received from lab. name and result repeated back. 0740 attempted to notify of lab value, unable to take value at this time, will attempt again.
--- NOTE | 2022-04-16 08:44 | EXP.CARD.PN ---
Subjective Subjective Date: 04/16/22 Time: 08:48 Principal diagnosis: acute on chronic chf exacerbation Interval history: Patient resting, reports soa has improved since yesterday. Bilateral rhonchi noted, decreased sounds noted to right lung base. LE edema has improved. UOP since admission 1300. AM labs as follow: Hemoglobin 11.1, sodium 135, potassium 2.9, creatinine 0.7, magnesium 2.1, BNP 11,000. Chest x-ray shows increased interstitial markings with right greater than left lower lobe opacities and right greater than left pleural effusion favor CHF. Echo from 04/15/2022 shows an estimated EF of 25% up from 20%last month. Exam Data for Last 24 hours Vital signs and Labs for Last 24 Hours: Temp Pulse Resp BP Pulse Ox 98.2 F 90 18 97/62 L 96 04/16/22 04:00 04/16/22 08:00 04/16/22 04:00 04/16/22 04:00 04/16/22 06:15 Laboratory Results - last 24 hr 04/15/22 14:08: Specimen Source Right radial, O2 % 1l nc, ABG pH 7.45, ABG pCO2 39.4, ABG pO2 69.1 L, ABG HCO3 26.8 H, ABG Total CO2 28.0 H, ABG O2 Saturation 94, ABG Base Excess 2.8 H, Kameron Test Acceptable 04/15/22 15:01: SARS-CoV-2 (PCR) Not detected, Influenza A Untype (PCR) Not detected, Influenza Type B (PCR) Not detected 04/15/22 15:25: Sodium 132 L, Potassium 3.3 L, Chloride 97 L, Carbon Dioxide 28, Anion Gap 10.3, BUN 13, Creatinine 0.60, Estimated Creat Clear 64, Estimated GFR 99, Est GFR ( Amer) 119, Glucose 104 H, Calcium 8.8, Magnesium 2.1, Total Bilirubin 1.2, AST 54 H, ALT 37, Alkaline Phosphatase 106, Total Protein 6.6, Albumin 3.4 L, Globulin 3.2, Albumin/Globulin Ratio 1.1 04/15/22 15:25: Lactate 1.6 04/15/22 15:25: Procalcitonin 0.210 04/15/22 15:25: WBC 11.7 H, RBC 3.63 L, Hgb 11.7 L, Hct 34.4 L, MCV 94.7, MCH 32.1 H, MCHC 33.9, RDW 13.4, Plt Count 390, MPV 7.9, Neut % (Auto) 85.8 H, Lymph % (Auto) 5.9 L, Baker % (Auto) 7.2, Eos % (Auto) 0.7, Baso % (Auto) 0.3, Neut # (Auto) 10.1 H, Lymph # (Auto) 0.7, Baker # (Auto) 0.9, Eos # (Auto) 0.1, Baso # (Auto) 0.0, Total Counted 100, Neutrophils % (Manual) 85 H, Lymphocytes % (Manual) 7 L, Monocytes % (Manual) 8, Platelet Estimate Normal, Tear Drop Cells 1+ 04/15/22 15:25: NT-Pro-B Natriuret Pep 98353 H 04/15/22 15:25: Troponin I 0.02 04/15/22 18:21: Troponin I 0.02 04/15/22 22:03: Troponin I 0.02 04/16/22 06:33: WBC 10.4, RBC 3.56 L, Hgb 11.1 L, Hct 33.7 L, MCV 94.9, MCH 31.2, MCHC 32.9, RDW 13.6, Plt Count 377, MPV 8.2, Neut % (Auto) 84.5 H, Lymph % (Auto) 7.0 L, Baker % (Auto) 7.4, Eos % (Auto) 0.7, Baso % (Auto) 0.4, Neut # (Auto) 8.8 H, Lymph # (Auto) 0.7, Baker # (Auto) 0.8, Eos # (Auto) 0.1, Baso # (Auto) 0.0 04/16/22 06:33: Sodium 135 L, Potassium 2.9 L*, Chloride 101, Carbon Dioxide 30, Anion Gap 6.9, BUN 12, Creatinine 0.70, Estimated Creat Clear 66, Estimated GFR 82, Est GFR ( Amer) 100, Glucose 89, Calcium 8.6, Magnesium 2.1, NT-Pro-B Natriuret Pep [id number] H I & O for Last 24 hours: Intake & Output 04/13/22 04/14/22 04/15/22 04/16/22 23:59 23:59 23:59 23:59 Intake Total 120 / 120 240 / 240 Output Total 500 / 1000 800 / 800 Balance -380 / -880 -560 / -560 Weight 174 lb 1 oz 178 lb 1 oz Constitutional Constitutional: mild distress and chronically ill appearing *Routine Respiratory Exam Respiratory: Present rhonchi and symmetric chest movement Comments: cough noted *Routine Cardiovascular Exam Cardiovascular: Present Normal S1, Normal S2 and tachycardia Comments: Normal sinus rhythm *Routine Abdominal Exam Abdominal: Present soft and normoactive bowel sounds; Absent tenderness *Routine Extremities Exam Extremities: Present edema, full ROM and normal capillary refill Comments: Bilateral LE edema greatly improved since yesterday *Routine Skin Exam Skin: Present intact, dry and warm Detailed Neck Exam: Thyroids Thyroid: Absent bruit Progress Note: A&P Assessment and plan (1) CAD (coronary artery disease): Status: Acute (2) Elevated left ventricular end-diastolic pressure (LVEDP)
--- NOTE | 2022-04-16 10:06 | HMH.PTEV ---
Physical Therapy Evaluation Rehab PT IP Evaluation Start: 04/16/22 09:22 Freq: .once Status: Active Protocol: Document 04/16/22 10:02 JANNET (Rec: 04/16/22 10:06 PHOKAITLIN [id number]) Subjective/History History History 71 yowf adm to [facility] with CHF exac. She reports she lives alone, no steps to enter the home, and is generally independent with all mobility. She does not use oxygen at baseline. Subjective Subjective Pt reports feeling weak and tired, I don't think I can do anything right now. Rehab PT IP Eval Objective Appearance Patient Behavior Appropriate Patient Orientation Person,Place,Time Difficulty following instructions none Speech Pattern Clear Ambulation Patient Able to Ambulate Yes Ambulation Observation IP General Gait Pattern Observation Shuffling Step Ambulation Distance (feet) 3 Ambulation Assistive Device None Ambulation Ability Contact Guard/Hand Hold Balance Ability to Arise Able, uses arms to help Sitting Balance Steady, safe Standing Balance Steady, wide stance Dynamic Sitting Balance Ability Good Dynamic Standing Balance Ability Fair Transfers Bed Transfer Ability Contact Guard/Hand Hold Chair Transfer Ability Contact Guard/Hand Hold Sit to Stand Bed Transfer Ability Contact Guard/Hand Hold Sit to Stand Chair Transfer Ability Contact Guard/Hand Hold Rehab PT IP prob,goals,plan Problems Date of Evaluation: 04/16/22 PT IP Problems Bed Mobility,Transfers,Gait Rehab Potential Rehab Potential Good Plan PT Intervention Plan Bed Mobility,Transfers,Gait, Self care,Therapeutic Exercise PT Plan Frequency Daily Duration LOS Discharge Goals Bed Transfer Ability Supervision/Stand by Sit to Stand Chair Transfer Ability Supervision/Stand by Ambulation Assistive Device None Ambulation Distance (feet) 25 Discharge Plan PT Discharge Plan Pt is currently most appropriate for rehab placement as she needs to be independent with all activity to be safe at home. She may be able to return home if her mobility significantly improves prior to being medically ready for d/c. G -code Required
--- NOTE | 2022-04-16 10:18 | HMH.OTEV ---
OT Inpatient Evaluation Rehab OT IP Evaluation Start: 04/16/22 09:22 Freq: ONCE Status: Active Protocol: Document 04/16/22 10:00 [email or web address] (Rec: 04/16/22 10:17 [facility] [id number]) Rehab OT IP Assessment Subjective History Pt is oriented x3 person, place, and . Pt was agreeable to engage in therapy evaluation. Pt was admitted to [facility] on 04/15/22 due to Dyspnea. Pt reports that she was independent in all ADLs and IADLs. She reports that her son helps her with cleaning and grocery shopping. Pt reports that she is unable to drive. Pt reports that she lives alone, but her son has been staying to help around the house. Pt is alone at times, because her son does work fulltime. She reports she uses a cane for functional mobility around the house. Pt has a past medical history of the following: Abnormal electrocardiogram [ ECG] [EKG] Acute systolic (congestive) heart failure Coronary artery disease Elevated left ventricular end- diastolic pressure (LVEDP) Encounter for monitoring antiplatelet therapy Hypertension Ischemic cardiomyopathy LV dysfunction Occasional use of marijuana ST elevation myocardial infarction (STEMI) of anterior wall Tachypnea Tobacco user Uses alcohol occasionally Pt was left resting in chair with call granda and all other needs within reach. Subjective I haven't made it that far yet. Objective Patient Orientation Person,Place,Birthday Upper Extremity Gross ROM WFL Shoulder ROM Limitations Muscle Weakness Elbow ROM Limitations
--- NOTE | 2022-04-16 11:14 | SW/DCPLANNER ---
Addendum entered by Kristi [place] 04/17/22 09:30: This patient was approved by insurance will discharge to [facility] today SNF level of care. Flory with [facility] stated that patient will NOT need a COVID swab prior to discharge. Addendum entered by Kristi [place] 04/16/22 14:21: Flory sequeira/ [facility] stated that she would be able to accept this patient pending precert. Precert will be started today. Addendum entered by Kristi [place] 04/16/22 13:22: Ishmael sequeira/ [facility] stated that she can not accept this patient. Flory sequeira/ [facility] will onsite this patient today. Original Note: I spoke with this patient regarding plans once she is medically stable for discharge. Patient stated that she resides at home with her son. Her son does work during the day and she is at home alone during this time. PT/OT evaluated this patient and has recommended SNF level of care at this time. Patient is agreeable to placement at time of discharge and prefers [place], [place], [place] or [place] locations. I have faxed patient information to [facility] and [facility] at this time. Pending no setbacks patient could potentially be medically stable for discharge tomorrow. I will continue to follow up with patient and facilities.
--- NOTE | 2022-04-16 14:22 | EXP.ACUTE.PN ---
Subjective *Date: 04/16/22 *Time: 14:41 Medical Exam Vital signs and Labs for Last 24 Hours: Vital Signs Temp Pulse Pulse Resp BP Pulse Ox 04/16/22 12:00 80 04/16/22 12:00 98.3 F 87 30 H 88/54 L 94 L 04/16/22 09:00 89 93 L 04/16/22 08:00 98.2 F 89 16 91/60 L 93 L 04/16/22 08:00 90 04/16/22 06:15 91 H 04/16/22 06:15 88 04/16/22 06:15 96 04/16/22 04:26 90 04/16/22 04:00 98.2 F 98 H 18 97/62 L 96 04/16/22 00:30 85 20 87/58 L 04/16/22 00:00 100 H 04/16/22 00:00 97.9 F 90 20 82/53 L 95 04/15/22 20:00 80 04/15/22 23:10 80 04/15/22 23:10 80 04/15/22 19:48 98.4 F 85 20 86/52 L 94 L 04/15/22 18:21 92 H 04/15/22 18:21 94 H 04/15/22 18:21 92 L 04/15/22 16:00 100 H 04/15/22 16:00 98.5 F 103 H 22 94/66 L 97 Intake and Output 04/15/22 04/16/22 04/16/22 23:59 07:59 15:59 Intake Total 120 / 120 240 / 540 300 / 540 Output Total 500 / 1000 800 / 2000 1200 / 2000 Balance -380 / -880 -560 / -1460 -900 / -1460 Intake: Intake, Oral Amount 120 / 120 240 / 440 200 / 440 Intake, Total IV Amount 100 / 100 Potassium Chloride 20 meq 100 / 100 lidocaine HCL 2 ml In 0.9 % Sodium Chloride 100 ml @ 55 mls /hr IV ONCE ONE Rx#:[id number] Output: Output, Urine Amount 500 / 1000 800 / 1400 600 / 1400 Output, Urine Amount (Catheter) 600 / 600 pure wick 600 / 600 Other: Number of Unmeasured Voids 0 1 Number of Bowel Movements 0 Weight 80.768 kg Patient Weight 04/16/22 23:59 Weight 80.768 kg Laboratory Results - last 24 hr 04/15/22 14:08: Specimen Source Right radial, O2 % 1l nc, ABG pH 7.45, ABG pCO2 39.4, ABG pO2 69.1 L, ABG HCO3 26.8 H, ABG Total CO2 28.0 H, ABG O2 Saturation 94, ABG Base Excess 2.8 H, Kameron Test Acceptable 04/15/22 15:01: SARS-CoV-2 (PCR) Not detected, Influenza A Untype (PCR) Not detected, Influenza Type B (PCR) Not detected 04/15/22 15:25: Sodium 132 L, Potassium 3.3 L, Chloride 97 L, Carbon Dioxide 28, Anion Gap 10.3, BUN 13, Creatinine 0.60, Estimated Creat Clear 64, Estimated GFR 99, Est GFR ( Amer) 119, Glucose 104 H, Calcium 8.8, Magnesium 2.1, Total Bilirubin 1.2, AST 54 H, ALT 37, Alkaline Phosphatase 106, Total Protein 6.6, Albumin 3.4 L, Globulin 3.2, Albumin/Globulin Ratio 1.1 04/15/22 15:25: Lactate 1.6 04/15/22 15:25: Procalcitonin 0.210 04/15/22 15:25: WBC 11.7 H, RBC 3.63 L, Hgb 11.7 L, Hct 34.4 L, MCV 94.7, MCH 32.1 H, MCHC 33.9, RDW 13.4, Plt Count 390, MPV 7.9, Neut % (Auto) 85.8 H, Lymph % (Auto) 5.9 L, Nance % (Auto) 7.2, Eos % (Auto) 0.7, Baso % (Auto) 0.3, Neut # (Auto) 10.1 H, Lymph # (Auto) 0.7, Nance # (Auto) 0.9, Eos # (Auto) 0.1, Baso # (Auto) 0.0, Total Counted 100, Neutrophils % (Manual) 85 H, Lymphocytes % (Manual) 7 L, Monocytes % (Manual) 8, Platelet Estimate Normal, Tear Drop Cells 1+ 04/15/22 15:25: NT-Pro-B Natriuret Pep [id number] H 04/15/22 15:25: Troponin I 0.02 04/15/22 18:21: Troponin I 0.02 04/15/22 22:03: Troponin I 0.02 04/16/22 06:33: WBC 10.4, RBC 3.56 L, Hgb 11.1 L, Hct 33.7 L, MCV 94.9, MCH 31.2, MCHC 32.9, RDW 13.6, Plt Count 377, MPV 8.2, Neut % (Auto) 84.5 H, Lymph % (Auto) 7.0 L, Nance % (Auto) 7.4, Eos % (Auto) 0.7, Baso % (Auto) 0.4, Neut # (Auto) 8.8 H, Lymph # (Auto) 0.7, Nance # (Auto) 0.8, Eos # (Auto) 0.1, Baso # (Auto) 0.0 04/16/22 06:33: Sodium 135 L, Potassium 2.9 L*, Chloride 101, Carbon Dioxide 30, Anion Gap 6.9, BUN 12, Creatinine 0.70, Estimated Creat Clear 66, Estimated GFR 82, Est GFR ( Amer) 100, Glucose 89, Calcium 8.6, Magnesium 2.1, NT-Pro-B Natriuret Pep 20513 H I & O for Labs for Last 24 Hours: Intake & Output 04/13/22 04/14/22 04/15/22 04/16/22 23:59 23:59 23:59 23:59 Intake Total 120 / 120 540 / 540 Output Total 500 / 1000 1999 / 1999 Balance -380 / -880 -1460 / -1460 Weight 78.953 kg 80.768 kg Assessment and Plan *Assessme
[2022-04-16 17:59] LABS: Chloride 99 mmol/L (98-107); Potassium 3.9 mmoL/L (3.5-5.1); Sodium 138 mmol/L (136-145)
[2022-04-16 18:03] LABS: Anion Gap 9.9 mEq/L (5-15); Blood Urea Nitrogen 12 mg/dl (7-17); Calcium 8.8 mg/dl (8.4-10.2); Carbon Dioxide 33 mmol/L (22.0-30.0); Creatinine Clearance Estimated 66 mL/min (50-200); Estimated Glomerular Filt Rate 82 ml/min (>60); GFR (African American) 100 ML/MIN (>60); Glucose 109 mg/dl (74-100)
[2022-04-16 18:58] LABS: Adenovirus,PCR Not Detected (NotDetected); Bordetella Pertussis Not Detected (NotDetected); Chlamydophila Pneumoniae, PCR Not Detected (NotDetected); Coronavirus 19, PCR Not Detected (NotDetected); Coronavirus 229E Not Detected (NotDetected); Coronavirus NL63 Not Detected (NotDetected); Coronavirus OC43 Not Detected (NotDetected); Coronovirus HKU1,PCR Not Detected (NotDetected); Human Metapneumovirus Not Detected (NotDetected); Influenza A, PCR Not Detected (NotDetected); Influenza AH1, 2009 Not Detected (NotDetected); Influenza AH1, PCR Not Detected (NotDetected); Influenza AH3,PCR Not Detected (NotDetected); Influenza B, PCR Not Detected (NotDetected); Mycoplasma Pneumoniae, PCR Not Detected (NotDetected); Parainfluenza 1, PCR Not Detected (NotDetected); Parainfluenza 2, PCR Not Detected (NotDetected); Parainfluenza 3, PCR Not Detected (NotDetected); Parainfluenza 4, PCR Not Detected (NotDetected); Respiratory Syncytial Virus Not Detected (NotDetected); Rhinovirus/Enterovirus Not Detected (NotDetected)
[2022-04-17] VITALS (7 sets, daily range): BP systolic 102–103; BP diastolic 63–64; PULSE 82–110; RESP 17–22; TEMP 36.8; O2SAT 92–97; BMI 28.8
--- NOTE | 2022-04-17 04:28 | PC.NURSE ---
Pt has been resting through the night.A&Ox4. 2L NC. Complained of a cramping pain in her abdomen. States that isn't new. Gave prn pain med per may. Covid negative. Hypotensive but pt is asymtomatic. Systolics have been >90. Will continue to monitor.
[2022-04-17 06:07] LABS: Basophils # 0.1 K/mm3 (0-0.2); Basophils % 0.6 % (0.1-2.0); Eosinophils # 0.1 K/mm3 (0.0-0.4); Eosinophils % 1.1 % (0.1-12.0); Hematocrit 39.2 % (37.0-47.0); Lymphocytes # 0.8 K/mm3 (0.7-4.5); Lymphocytes % 8.2 % (10-50); Mean Corpuscular HGB Conc 31.9 g/dL (31.8-35.4); Mean Corpuscular Hemoglobin 30.2 pg (27.0-31.2); Mean Corpuscular Volume 94.9 fl (81-99); Mean Platelet Volume 7.6 fl (7.4-10.4); Monocytes # 0.7 K/mm3 (0.1-1.0); Monocytes % 6.8 % (1.7-9.3); Neutrophils # 8.2 K/mm3 (1.8-7.8); Neutrophils % 83.3 % (37.0-80.0); Platelet Count 347 K/mm3 (142-424); Red Blood Count 4.13 M/mm3 (4.20-5.40); Red Cell Distribution Width 13.4 % (11.5-17.5); White Blood Count 9.9 K/mm3 (4.8-10.8)
[2022-04-17 06:12] LABS: Hemoglobin 12.6 g/dL (12.2-16.2)
[2022-04-17 06:31] LABS: Alanine Aminotransferase 41 U/L (12-78); Albumin Level 3.1 g/dl (3.5-5.0); Alkaline Phosphatase 109 U/L (38-126); Anion Gap 8.5 mEq/L (5-15); Aspartate Amino Transferase 59 U/L (14-36); Bilirubin,Total 1.1 mg/dl (0.2-1.3); Blood Urea Nitrogen 12 mg/dl (7-17); Calcium 8.6 mg/dl (8.4-10.2); Carbon Dioxide 31 mmol/L (22.0-30.0); Chloride 100 mmol/L (98-107); Creatinine Clearance Estimated 63 mL/min (50-200); Estimated Glomerular Filt Rate 82 ml/min (>60); GFR (African American) 100 ML/MIN (>60); Globulin 3.2 g/dL (1.3-3.2); Glucose 97 mg/dl (74-100); Magnesium 1.9 mg/dl (1.6-2.3); Potassium 3.5 mmoL/L (3.5-5.1); Sodium 136 mmol/L (136-145); Total Protein,Serum 6.3 g/dl (6.3-8.2)
--- NOTE | 2022-04-17 07:52 | EXP.DC.SUM ---
General Admission date:: 04/15/22 Discharge date: 04/17/22 HPI HPI HPI: This is a 71-year-old female that presented to her oral therapist today for evaluation and was noted to be acutely dyspneic. She was directly admitted to [facility] for shortness of air. Her past medical history is significant for HFrEF with ejection fraction 20% on LifeVest, ischemic cardiomyopathy, coronary disease status post stent to LAD March 2022, hypertension, COPD with ongoing tobacco dependence. She is accompanied by her daughter Laurita who assists with the history. She reports over the last week identifying increasing dyspnea worse with exertion and now occurring at rest. She reports acute dyspnea with minimal exertion (NYHA IV). She describes associated cough that is productive characterized as thick and arnold in color. She denies associated hemoptysis. She reports no associated retrosternal chest pain or palpitations. She denies syncope or falls. She does not use home oxygen. She has identified increasing lower extremity edema and orthopnea. She reports that she is COVID?19 vaccinated. Hospital Course Hospital Course Hospital Course: This is a 71-year-old female who was directly admitted from her oral therapist office to the medical floor for acute dyspnea that is multifactorial including previously identified ischemic cardiomyopathy with ejection fraction of 20%, coronary disease with left heart cath and stent deployment March 2022, chronic tobacco use history with chronic hypoxic respiratory failure.? Problems addressed are as follows: Acute hypoxic on chronic respiratory failure Chest imaging obtained on admission concerning for CHF exacerbation with pleural effusions. Started on diuresis. Goal saturations of been greater 90%. Currently tolerating 2 L nasal cannula. Continue oxygen and wean as tolerated at nursing facility. Diuresed well with over 4.5 L of negative output since admission. Improvement in lung exam. Plan to continue breathing treatments with inhalers as needed. No antibiotics at this time given that she does not appear to have a pneumonia and has a normal white cell count. Continue treatment for heart failure as below. Renal function has remained stable with normal creatinine. Would benefit from repeat labs in a week to monitor kidney function and electrolytes. Recommend CMP in 1 week. -Infectious work-up negative with blood cultures and respiratory panel. Acute on chronic HFrEF CAD Hypokalemia Left heart cath performed 03/25/2022.? CHITO to LAD. Continue dual antiplatelet therapy during admission. Continue high intensity statin. Echocardiogram obtained during this admission showing EF of 25%, slight improvement over echo the end of February. Cardiology consulted and assisting with care. Patient's blood pressure regimen was decreased and her beta-yakelin has been held. Recommend continuing diuresis with Lasix 40 mg daily. Continue Aldactone and Jardiance. Continue with potassium supplementation as well given loop diuretic use and low potassium during admission. Tobacco dependence Tobacco cessation education, Nicotine replacement therapy Medically stable for discharge to nursing facility for continued rehab. Patient's medical conditions are improving, needing therapy to improve mobility and functionality with goal of getting home. Exam Data for Last 24 hours Vital signs and Labs for Last 24 Hours: Temp Pulse Resp BP Pulse Ox 98.2 F 103 H 17 103/63 L 92 L 04/17/22 07:44 04/17/22 07:44 04/17/22 07:44 04/17/22 07:44 04/17/22 07:44 Laboratory Results - last 24 hr 04/16/22 17:36: Sodium 138, Potassium 3.9 D, Chloride 99, Carbon Dioxide 33 H, Anion Gap 9.9, BUN 12, Creatinine 0.70, Estimated Creat Clear 66, Estimated GFR 82, Est GFR ( Amer) 100, Glucose 109 H D, Calcium 8.8 04/16/22 18:53: Chlamy pneumoniae PCR Not detected, Adenovirus (PCR) Not detected, B. pertussis DNA (PCR) Not detected, Cor
--- NOTE | 2022-04-17 08:24 | XR_ITS ---
FINAL REPORT CLINICAL HISTORY: chf COMPARISON: 04/15/2022. FINDINGS: PORTABLE CHEST The heart is normal in size. The mediastinum is unremarkable. There is a moderate right and a small left pleural effusion. There is mild interstitial edema and moderate atelectasis. There is no pneumothorax. IMPRESSION: No significant change from the prior exam. Reviewed, Interpreted and Dictated by Twin Pereira MD Transcribed by Jasmyne Javier Authenticated and [facility]
--- NOTE | 2022-04-17 09:00 | EXP.CARD.PN ---
Subjective Subjective Date: 04/17/22 Time: 08:00 Principal diagnosis: acute on chronic chf exacerbation Interval history: Doing well this am. Patient has a -4540 balance this am. Has diuresed well. Vitals remained stable. Lower extremity edema has resolved. Repeat chest x-ray pending. Exam Data for Last 24 hours Vital signs and Labs for Last 24 Hours: Temp Pulse Resp BP Pulse Ox 98.2 F 103 H 17 103/63 L 92 L 04/17/22 07:44 04/17/22 07:44 04/17/22 07:44 04/17/22 07:44 04/17/22 07:44 Laboratory Results - last 24 hr 04/16/22 17:36: Sodium 138, Potassium 3.9 D, Chloride 99, Carbon Dioxide 33 H, Anion Gap 9.9, BUN 12, Creatinine 0.70, Estimated Creat Clear 66, Estimated GFR 82, Est GFR ( Amer) 100, Glucose 109 H D, Calcium 8.8 04/16/22 18:53: Chlamy pneumoniae PCR Not detected, Adenovirus (PCR) Not detected, B. pertussis DNA (PCR) Not detected, Coronavirus OC43 (PCR) Not detected, Coronavirus HKU1 (PCR) Not detected, Coronavirus 229E (PCR) Not detected, SARS-CoV-2 (PCR) Not detected, Coronavirus NL63 (PCR) Not detected, Human Metapneumovir PCR Not detected, Influenza A (H1) PCR Not detected, Influ A (H1N1/09) PCR Not detected, Influenza A (H3) PCR Not detected, Influenza Type A (PCR) Not detected, Influenza Type B (PCR) Not detected, M. pneumoniae (PCR) Not detected, Parainfluenza 1 (PCR) Not detected, Parainfluenza 2 (PCR) Not detected, Parainfluenza 3 (PCR) Not detected, Parainfluenza 4 (PCR) Not detected, RSV (PCR) Not detected, Entero/Rhino (PCR) Not detected 04/17/22 05:45: WBC 9.9, RBC 4.13 L, Hgb 12.6 D, Hct 39.2, MCV 94.9, MCH 30.2, MCHC 31.9, RDW 13.4, Plt Count 347, MPV 7.6, Neut % (Auto) 83.3 H, Lymph % (Auto) 8.2 L, [place] % (Auto) 6.8, Eos % (Auto) 1.1, Baso % (Auto) 0.6, Neut # (Auto) 8.2 H, Lymph # (Auto) 0.8, [place] # (Auto) 0.7, Eos # (Auto) 0.1, Baso # (Auto) 0.1 04/17/22 05:45: Sodium 136, Potassium 3.5, Chloride 100, Carbon Dioxide 31 H, Anion Gap 8.5, BUN 12, Creatinine 0.70, Estimated Creat Clear 63, Estimated GFR 82, Est GFR ( Amer) 100, Glucose 97, Calcium 8.6, Magnesium 1.9, Total Bilirubin 1.1, AST 59 H, ALT 41, Alkaline Phosphatase 109, Total Protein 6.3, Albumin 3.1 L, Globulin 3.2, Albumin/Globulin Ratio 1.0 L I & O for Last 24 hours: Intake & Output 04/14/22 04/15/22 04/16/22 04/17/22 23:59 23:59 23:59 23:59 Intake Total 120 / 120 900 / 900 400 / 400 Output Total 500 / 1000 6200 / 6200 250 / 250 Balance -380 / -880 -5300 / -5300 150 / 150 Weight 174 lb 1 oz 178 lb 1 oz 169 lb 3 oz Microbiology Reports for the Last 24 Hours: Microbiology 04/16/22 18:00 Sputum - Expectorated Sputum Gram Stain - Final Constitutional Constitutional: no acute distress *Routine Respiratory Exam Respiratory: Present CTA bilaterally and symmetric chest movement *Routine Cardiovascular Exam Cardiovascular: Present RRR, Normal S1 and Normal S2 *Routine Abdominal Exam Abdominal: Present soft and normoactive bowel sounds; Absent tenderness *Routine Extremities Exam Extremities: Present full ROM and normal capillary refill; Absent edema *Routine Skin Exam Skin: Present intact, dry and warm Detailed Neck Exam: Thyroids Thyroid: Absent bruit Progress Note: A&P Assessment and plan (1) Acute and chronic respiratory failure with hypoxia: Status: Acute (2) Acute systolic (congestive) heart failure: Status: Acute (3) CAD (coronary artery disease): Status: Acute (4) Ischemic cardiomyopathy: Status: Acute (5) Hypertension: Status: Acute (6) Tobacco user: Status: Acute Assessment and Plan Assessment and Plan for All Diagnoses:: Acute hypoxic respiratory failure -Chest xray 04/15/22-right greater than left lower lobe opacities and right greater than left pleural effusions favor CHF. -Has diuresed 1300mLs since admission, has -940 balance. -symptoms improving -Continue lasix 40mg IV BID and aldactone 25mg po daily. 04/17/2022: Symptoms continue to improve.
[2022-04-17 09:20] LABS: Coronavirus 19, PCR Not Detected (NotDetected); Influenza A, PCR Not Detected (NotDetected); Influenza B, PCR Not Detected (NotDetected)
--- NOTE | 2022-04-17 10:19 | PC.NURSE ---
while getting dressed attempted ot help patient with life vest. patient stated she was not going to wear that and would put the life vest on at the snf
--- NOTE | 2022-04-17 10:19 | PC.NURSE ---
Report called to sugar carlos
--- NOTE | 2022-04-18 11:05 | CARE MANAGER ---
Spoke with patient's nurse at [facility]. She states she had some anxiety yesterday and some nausea this morning but otherwise is doing well. Denies any questions or concerns. KERRI Hurtado
== END 2022-04-17 11:53 | DRG 291 ==
PROVIDERS: Admitting Provider Family Medicine; PCP Nurse Practitioner Family; Visit Provider Internal Medicine Adolescent Medicine
DX: I11.0 Hypertensive heart disease with heart failure (principal); I50.21 Acute systolic (congestive) heart failure; J96.21 Acute and chronic respiratory failure with hypoxia; I25.10 Atherosclerotic heart disease of native coronary artery without angina pectoris; I25.5 Ischemic cardiomyopathy; Z95.5 Presence of coronary angioplasty implant and graft; E87.6 Hypokalemia; I25.2 Old myocardial infarction; Z20.822 Contact with and (suspected) exposure to COVID-19; Z79.02 Long term (current) use of antithrombotics/antiplatelets; Z79.899 Other long term (current) drug therapy
CPT/HCPCS: G0378; G0379; 36415; 71045; 71046; 80048; 80053; 82803; 83605; 83735; 83880; 84145; 84484; 85007; 85025; 87070; 87205; 87581; 87632; 87798; 93005; 93308; 94640; 97162; 97165; 97530; C9803; Q9957; U0003; U0005

== ENCOUNTER → 2022-04-30 11:14 | Outpatient (CLI) | payer MEDICARE, MEDICAID, SELFPAY ==
[2022-04-30 12:47] LABS: Anion Gap 13.3 mEq/L (5-15); Blood Urea Nitrogen 23 mg/dl (7-17); Calcium 9.4 mg/dl (8.4-10.2); Carbon Dioxide 24 mmol/L (22.0-30.0); Chloride 105 mmol/L (98-107); Estimated Glomerular Filt Rate 32 ml/min (>60); GFR (African American) 38 ML/MIN (>60); Glucose 97 mg/dl (74-100); Potassium 5.3 mmoL/L (3.5-5.1); Sodium 137 mmol/L (136-145)
== END ==
PROVIDERS: PCP Nurse Practitioner Family; Visit Provider Nurse Practitioner
DX: I10 Essential (primary) hypertension (principal); I25.10 Atherosclerotic heart disease of native coronary artery without angina pectoris; I25.5 Ischemic cardiomyopathy; I50.21 Acute systolic (congestive) heart failure; R94.30 Abnormal result of cardiovascular function study, unspecified; Z72.0 Tobacco use; Z95.5 Presence of coronary angioplasty implant and graft
CPT/HCPCS: 36415; 80048

== ENCOUNTER → 2022-05-06 10:10 | Outpatient (CLI) | payer MEDICARE, MEDICAID, SELFPAY ==
[2022-05-06 12:20] LABS: Blood Urea Nitrogen 30 mg/dl (7-17); Calcium 9.6 mg/dl (8.4-10.2); Carbon Dioxide 15 mmol/L (22.0-30.0); Chloride 109 mmol/L (98-107); Estimated Glomerular Filt Rate 28 ml/min (>60); GFR (African American) 34 ML/MIN (>60); Glucose 102 mg/dl (74-100); Sodium 136 mmol/L (136-145)
== END ==
PROVIDERS: PCP Nurse Practitioner Family; Visit Provider Nurse Practitioner
DX: N17.9 Acute kidney failure, unspecified (principal)
CPT/HCPCS: 36415; 80048

== ENCOUNTER → 2022-06-10 12:50 | Outpatient (CLI) | payer MEDICARE, MEDICAID, SELFPAY ==
--- NOTE | 2022-06-10 | CA_ITS ---
APPROVED REPORT EXAM: Limited 2D Echocardiogram [employer] Software Engineer: Suyapa Asencio, RCS, RVS Ht: 5 ft 4 in Wt: 185lbs BSA: 1.89 BP: 78/52 mmHg Rhythm: Atrial Fibrillation Indications: CM-25%, COPD, CHF, Afib 2D Dimensions IVSd 0.78 cm F: 0.6-1.0 LVEF (Visual) 25.00 % PWd 0.84 cm F: 0.6 - 1.0 LA Volume 47.00 mL LVDd 5.40 cm F: 3.9 - 5.3 LA Volume Index 24.87 mL/m2 (M/F) 16-34 LVDs 4.21 cm F: 2.2 - 3.5 M-Mode Dimensions RVDd 1.49 cm (0.9-2.6) LA Diam 3.31 cm (1.9-4.0) LVDd 5.52 cm (3.5-5.7) Ao Diam 3.27 cm (2.0-3.7) LVDs 4.79 cm (3.5-5.7) IVSd 0.97 cm (0.6-1.1) PWd 1.01 cm (0.6-1.1) EF (Teich) 28.00% FS 13.20% EDV (Teich) 148.70 mL ESV (Teich) 107.00 mL Conclusion 1. Limited echocardiogram was performed to evaluate left ventricular systolic function. Left ventricle is mildly dilated, there is severe reduced left ventricular systolic function, estimated ejection fraction 25%, there is marked hypokinesis involving mid to distal septum, anterior, anterior apical and apical wall. 2. No significant pericardial effusion noted. Electronically signed by : Nadir Cummings MD 06/10/2022 13:59:27
== END ==
PROVIDERS: PCP Nurse Practitioner Family; Visit Provider Physician Assistant
DX: I50.21 Acute systolic (congestive) heart failure (principal)
CPT/HCPCS: 93308

== ENCOUNTER 2022-07-01 09:34 | Day surgery (SDC) | payer MEDICARE, MEDICAID, SELFPAY ==
--- NOTE | 2022-07-01 07:58 | IR_ITS ---
APPROVED REPORT Patient Location: Outpatient [facility] Lathe Set Up Operator: ALBA Peck RT (R) PROCEDURES 1. Pocket formation for AICD. 2. Placement of atrial sensing and pacing coil into the right atrial appendage. 3. Placement of a ventricular sensing, pacing and shocking coil in the right ventricular apex. 4. Permanent AICD placement. INDICATION Systolic Congestive Heart Failure, ejection < 35%, [place] Heart Assoication Class 3 Congestive Heart Failure Informed consent was obtained prior to the procedure. COMPLICATIONS None Estimated Blood Loss: Less than 10 ml TECHNIQUE 1% Lidocaine with epinephrine used to anesthetized the left anterior aspect of the chest. Scalpel was used to make the initial cutaneous incision while electrocautery was used to dissect down tinto the fascia. The fascia was lifted off the pectoralis muscle and digitally manipulated creating a pocket for the defibrillator. The patient was then placed in Trendelenburg position and the subclavian vein was accessed 2 times via the Selinger technique. A 8 Armenian sheath was placed under fluoroscopic guidance into the subclavian vein. The dilator was removed from the sheath. Using fluoroscopic guidance, the ventricular lead was placed into the right ventricular apex, screwed and secured into place. Electronic interrogation proved acceptable thresholds and voltage within the lead. Using 3-0 silk, the ventricular lead was then secured into place and sheath peeled away. A 6 Armenian fresh sheath and dilator was placed over the existing wire. Using fluoroscopic guidance, the atrial lead was then placed into the right atrial appendage and screwed and secured in place. Electrical interrogation demonstrated acceptable thresholds and voltage number. The atrial lead was then secured into place using 3-0 silk and sheath peeled away. 1 gram of Ancef was used to flush the pocket. All 3 leads were connected to generator and tested via computer. The defibrillator then secured to the fascia. Monocryl was used to close the subcutaneous layers while tanner were used to close the cutaneous layer. A pressure dressing was placed and the patient was transferred to the postop holding area in stable condition for postoperative care. INTERROGATION Generator Model number: Nury PARTIDA [id number] Generator Serial number: [id number] Atrial lead model number: Tendril STS 2088TC / 46 cm Atrial lead serial number: [id number] P-wave: 3.7MV Impedence: 640 ohms Threshold: 0.75@0.5 ms Right Ventricular lead model number: Dougsure [id number] / 58 cm Right Ventricular lead serial number: [id number] R-wave: >12.0 MV Impedence: 0.5v@0.5ms Threshold: 660 ohms Pacing Parameters: Mode: DDDR Base/Max Track:60 ppm / 130 ppm No diaphragmatic stimulation at 10 volts. IMPRESSION 1. Successful pocket formation for AICD. 2. Successful placement of atrial sensing and pacing coil into the right atrial appendage. 3. Successful placement of a ventricular sensing, pacing and shocking coil in the right ventricular apex. 4. Successful permanent AICD placement. PLAN 1. Post Op Wound Care Electronically signed by : Santino Roman MD 07/02/2022 09:11:27
[2022-07-01 09:41] VITALS: BMI 27.8
[2022-07-01 10:10] VITALS: BP 102/64; PULSE 85; RESP 18; TEMP 36.1; O2SAT 95
[2022-07-01 10:27] LABS: Basophils # 0.1 K/mm3 (0-0.2); Basophils % 1.1 % (0.1-2.0); Eosinophils # 0.6 K/mm3 (0.0-0.4); Eosinophils % 10.1 % (0.1-12.0); Hematocrit 38.2 % (37.0-47.0); Hemoglobin 12.3 g/dL (12.2-16.2); Lymphocytes # 1.4 K/mm3 (0.7-4.5); Lymphocytes % 24.7 % (10-50); Mean Corpuscular HGB Conc 32.2 g/dL (31.8-35.4); Mean Corpuscular Hemoglobin 29.3 pg (27.0-31.2); Mean Corpuscular Volume 90.9 fl (81-99); Mean Platelet Volume 7.6 fl (7.4-10.4); Monocytes # 0.3 K/mm3 (0.1-1.0); Monocytes % 6.1 % (1.7-9.3); Neutrophils # 3.3 K/mm3 (1.8-7.8); Neutrophils % 58.1 % (37.0-80.0); Platelet Count 318 K/mm3 (142-424); Red Cell Distribution Width 14.4 % (11.5-17.5); White Blood Count 5.6 K/mm3 (4.8-10.8)
--- NOTE | 2022-07-01 10:27 | EXP.ANES.CKL ---
[facility] Disclaimer: The information contained in this section may have been updated after the patient was seen, as this information can be updated by other users. Medical History Abnormal electrocardiogram [ECG] [EKG] Acute systolic (congestive) heart failure Coronary artery disease Elevated left ventricular end-diastolic pressure (LVEDP) Encounter for monitoring antiplatelet therapy Hypertension Ischemic cardiomyopathy LV dysfunction NYHA Class III cardiovascular function Occasional use of marijuana ST elevation myocardial infarction (STEMI) of anterior wall Tachypnea Tobacco user Uses alcohol occasionally Surgical History H/O tubal ligation History of cataract surgery Stented coronary artery Family History Mother Old age Father Fall Social History Smoking Status: Current every day smoker tobacco type: cigarettes packs per day: 1 quit status: considering quitting second hand exposure: Yes alcohol intake: current counseling provided: provider counseling substance use type: marijuana counseling given: Yes counseling provided: provider counseling current occupational status: other Travel in the last 8 weeks: None household members: children housing: house lives independently: No [facility] Anesthesia Checklist Patient Identification Patient Identification: Arm Band and Verbal (Name & ) Structural Data Admitted From: Home Planned Operative Procedure/s: AICD placement Consent for Planned Operative Procedure(s) Verified: Yes NPO Status Verified Time NPO: 00:00 Additional verifications Anesthesia Reactions: No Hx Blood Transfusions: No Blood Transfusion Reaction: No Airway Assessment C-Spine Mobility Assessed: Yes TMJ Mobility Assessed: Yes Dentition: Good Dentition Neurological Assessment Level of Consciousness: Awake Hx Seizures: No Numbness or tingling in extremities: No Anesthesia Plan Anesthesia Risk discussed: Yes Anesthesia Plan: Verified ASA Class: IV Anesthesia Type: MAC
[2022-07-01 10:33] LABS: Chloride 108 mmol/L (98-107); Sodium 141 mmol/L (136-145)
[2022-07-01 10:36] LABS: Blood Urea Nitrogen 11 mg/dl (7-17); Calcium 9.2 mg/dl (8.4-10.2); Carbon Dioxide 24 mmol/L (22.0-30.0); Creatinine Clearance Estimated 60 mL/min (50-200); Estimated Glomerular Filt Rate 71 ml/min (>60); GFR (African American) 86 ML/MIN (>60); Glucose 86 mg/dl (74-100)
--- NOTE | 2022-07-01 12:06 | XR_ITS ---
FINAL REPORT TECHNIQUE: Single view chest CLINICAL HISTORY: Confirm pacemaker/AID placement COMPARISON: 04/17/2022 FINDINGS: A single view of the chest was obtained. A left subclavian ICD is in place. The heart and mediastinum are within normal limits. There is mild bibasilar atelectasis or scarring. There is no pneumothorax. Osseous structures are unremarkable. IMPRESSION: Mild bibasilar atelectasis or scarring. No pneumothorax following pacemaker placement. Reviewed, Interpreted and Dictated by Jarod Gregorio III, MD Transcribed by Elke Gutiérrez Authenticated and [facility]
[2022-07-01 13:53] VITALS: BP 99/64; PULSE 87; RESP 20; O2SAT 94
[2022-07-01 14:15] VITALS: BP 94/56; PULSE 83; RESP 20; O2SAT 90
[2022-07-01 14:30] VITALS: BP 95/60; PULSE 82; RESP 20; O2SAT 95
[2022-07-01 14:45] VITALS: BP 101/61; PULSE 84; RESP 20; O2SAT 90
[2022-07-01 15:26] VITALS: BP 104/86; PULSE 99; RESP 18; O2SAT 92
== END 2022-07-01 15:36 | disposition home or self-care (01) ==
PROVIDERS: PCP Nurse Practitioner Family; Visit Provider Internal Medicine
PROC: 0JH609Z Insertion of Cardiac Resynchronization Defibrillator Pulse Generator into Chest Subcutaneous Tissue and Fascia, Open Approach (ICD-10-PCS; CPT 33249; principal; 2022-07-01 11:30)
DX: I25.10 Atherosclerotic heart disease of native coronary artery without angina pectoris (principal); I50.21 Acute systolic (congestive) heart failure; Z79.899 Other long term (current) drug therapy; Z79.01 Long term (current) use of anticoagulants; I25.5 Ischemic cardiomyopathy; I11.0 Hypertensive heart disease with heart failure; F17.210 Nicotine dependence, cigarettes, uncomplicated; Z95.5 Presence of coronary angioplasty implant and graft; I25.2 Old myocardial infarction
CPT/HCPCS: 33249; 71045; 80048; 85025; C1721; C1895; C1898; J2704

== ENCOUNTER 2024-06-07 15:12 | Outpatient (CLI) | payer MEDICARE, MEDICAID, SELFPAY ==
--- NOTE | 2024-06-07 15:15 | CA_ITS ---
APPROVED REPORT EXAM: Comprehensive 2D, Doppler, and color-flow Echocardiogram On Awake Counselor: Cristina Boyer RVT Ht: 5 ft 8 in Wt: 158lbs BSA: 1.85 BP: 135/79 mmHg Indications: HFrEF,EF OF 25% ON 06/10/22, AICD,CHF,HTN,SMOKER 2D Dimensions IVSd 0.66 cm F: 0.6-1.0 LVEF (Visual) 45.10 % PWd 0.84 cm F: 0.6 - 1.0 LA Volume 46.00 mL LVDd 5.64 cm F: 3.9 - 5.3 LA Volume Index 24.86 mL/m2 (M/F) 16-34 LVDs 4.36 cm F: 2.2 - 3.5 M-Mode Dimensions RVDd 2.51 cm (0.9-2.6) LA Diam 3.79 cm (1.9-4.0) LVDd 5.64 cm (3.5-5.7) LVDs 4.83 cm (3.5-5.7) IVSd 0.58 cm (0.6-1.1) PWd 0.67 cm (0.6-1.1) EF (Teich) 30.20% FS 14.40% EDV (Teich) 156.20 mL TAPSE 2.02 (<1.7) ESV (Teich) 109.10 mL LV Diastology E Decel Time 170 (160-240 msec) E/A Ratio 1.0 Aortic Valve RODOLFO Index 1.02 cm2/m2 AoV Peak Luis. 143.0 (50-130 cm/s) AI PHT 569.00 ms AO Peak GR. 8.20 mmHg AO Mean GR. 3.90 (<5 mmHg) AO VTI 28.3 (18-25 cm) RODOLFO (VTI) 1.92 (2.5-4.5 cm2) Mitral Valve MV E Max Luis. 63.0 (40-130 cm/s) MV A Velocity 63.0 (40-130 cm/s) E/A Ratio 1.00 MV PHT 50.0 ms Pulmonary Valve PV Peak Velocity 69.0 (50-150 cm/s) Left Ventricle The left ventricle is normal size. Left ventricular systolic function is severely decreased. There is increased LV wall thickness. There is severe global hypokinesis present. The septum is asynchronous. Grade 1 diastolic dysfunction is present. LVEF is 25%. Right Ventricle Right ventricle is mildly dilated. Right ventricle is mildly hypokinetic. There is a device lead in the right ventricle. Atria The left atrium is mildly dilated. The right atrium is mildly dilated. There is no Doppler evidence of interatrial shunt. Aortic Valve Aortic valve is mildly thickened. There is no aortic valvular stenosis. Mild aortic regurgitation. Mitral Valve The mitral valve is mildly thickened. No evidence of mitral valve stenosis. Mild mitral regurgitation. Tricuspid Valve The tricuspid valve leaflets are thin and pliable. Trace tricuspid regurgitation. There is insufficient TR jet to estimate RVSP. Pulmonic Valve The pulmonary valve is normal in structure. Trace pulmonic regurgitation. Great Vessels The aortic root is normal in size. IVC is normal in size and collapses >50% with inspiration. Pericardium There is no pericardial effusion. Other Information Study Quality: Technically Difficult Conclusion Technically difficult study due to poor acoustic windows. Severe reduction global LV systolic function (LVEF 25%). Asynchronous septum. Mild RV dilation with mild reduction in RV function. Mild biatrial dilation. Mild AI, mild MR. Compared to prior study from 06/10/2022, the LV systolic function is unchanged. In the setting of technically difficult study, future TTE evaluations are suggested with administration of ultrasound enhancing agent to better delineate the LV endocardial borders. Electronically signed by : Vilma Zelaya MD 06/13/2024 22:00:06
== END 2024-06-07 23:59 | disposition home or self-care (01) ==
LOC: RT 15:13
PROVIDERS: PCP Nurse Practitioner Family; Visit Provider Physician Assistant
DX: I47.29 Other ventricular tachycardia (principal); Z95.0 Presence of cardiac pacemaker; R94.31 Abnormal electrocardiogram [ECG] [EKG]; I50.20 Unspecified systolic (congestive) heart failure
CPT/HCPCS: 93306